=== PATIENT | female | born 1945 | race Caucasian/White ===

== ENCOUNTER 2016-12-23 11:23 | Inpatient (IN) | payer OTHER ==
[2016-12-23 11:52] LABS: MANUAL DIFF NEEDED? NO
[2016-12-23 12:00] LABS: BASO% 0.2 % (0.0-0.8); EOS# 0.02 X1000 (0.0-0.7); EOS% 0.4 % (0.0-10.0); HEMATOCRIT 24.5 % (37.0-47.0); HEMOGLOBIN 7.8 g/dL (12.0-16.0); IMM GRAN# 0.01 X1000 (0.0-0.04); IMM GRAN% 0.2 % (0.0-0.5); LYMPH% 13.2 % (20.5-51.1); MCH 22.8 PG (27-31); MCHC 31.8 g/dL (33-37); MCV 71.6 FL (81-99); MONO# 0.73 X1000 (0.11-0.59); MONO% 13.8 % (1.7-9.3); MPV 10.9 FL (7.4-10.4); NEUT% 72.2 % (42.2-75.2); PLT 250 X1000 (130-400); RBC 3.42 XMIL (4.2-5.4)
--- NOTE | 2016-12-23 12:10 | PROVIDER DOCUMENTATION ---
HPI-Headache - General Chief Complaint: Flu Symptoms Stated Complaint: FEVER, MARTÍNEZ Time Seen by Provider: 12/23/16 11:32 Source: patient Allergies/Adverse Reactions: Patient Allergies Allergy/AdvReac Type Severity Reaction Status Date / Time No Known Allergies Allergy Verified 08/29/13 09:09 Home Medications: Home Medication List Medication Instructions Recorded Confirmed Last Taken Type Omeprazole/Sodium Bicarbonate 1 mg PO PRN PRN 08/29/13 12/23/16 08/28/13 20:00 History [Zegerid 40 mg] ROSUVAstatin [Crestor] 10 mg PO DAILY 08/29/13 12/23/16 08/28/13 20:00 History Metoprolol Succinate E.r. [Toprol 25 mg PO Q12H #0 tablet 08/30/13 12/23/16 Unknown Rx Xl] Levothyroxine [Synthroid] 100 microgm PO DAILY 09/03/13 12/23/16 Unknown History Apixaban [Eliquis] 5 mg PO BID 12/23/16 12/23/16 Unknown History Furosemide [Lasix] 10 mg PO DAILY 12/23/16 12/23/16 Unknown History - History of Present Illness-Headache Nature of Presenting Problem: Pt is 71 y/o F presents to the ED via EMS with MARTÍNEZ. Pt states MARTÍNEZ stated last night. Pt states N and V. Pt denies trauma or injury to head. Pt states the MARTÍNEZ in frontal. Pt's daughter states hx of MD. Pt's daughter states Pt has herniated disk in her neck. Pt's daughter states MARTÍNEZ intermittently for two months but last night was the worse. 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 Headache Location: reports: frontal Quality of Pain: reports: aching Severity: reports: moderate Onset/Duration: reports: last night Timing: reports: still present Headache Context: reports: nothing Headache History: reports: occasional headaches Any recent trauma/injury?: reports: none Headache severity at the maximum: moderate Headache Exacerbated by:: reports: nothing Modifying Factors: improves with: nothing Associated Symptoms: reports: headache, nausea, vomiting. denies: decreased ability to walk or stand, fainting, dizziness, confusion, chest pain, neck/back pain, fatigue, fever/chills, insomnia, loss of consciousness, muscle spasms, numbness in legs/feet, paresthesia, diaphoretic, ringing in ears, seizures, sleepy, slurred speech, tingling in legs/feet, trouble walking, vision changes, weakness Similar Symptoms Previously?: Yes Recently seen or treated by another doctor?: No Review of Systems - Adult - REVIEW OF SYSTEMS - ADULT Constitutional: denies: chills, fever Eyes: denies: blurred vision, double vision Ears, Nose, Mouth & Throat: denies: ear pain, nose pain, throat pain Cardiovascular: denies: chest pain, heart murmur, irregular heart rate Respiratory: denies: cough, shortness of breath, wheezing Gastrointestinal: reports: nausea, vomiting. denies: abdominal pain, diarrhea Genitourinary: denies: dysuria, hematuria Musculoskeletal: denies: bone pain, joint pain, neck pain Integumentary: denies: hives, itching Neurological: reports: headache/migraines (MARTÍNEZ). denies: dizziness/vertigo Psychiatric: reports: no symptoms reported Endocrine: reports: no symptoms reported Hematologic/Lymphatic: reports: no symptoms reported Allergic/Immunologic: reports: no symptoms reported All Other Systems: Reviewed and Negative Past History - Adult - PAST MEDICAL HISTORY-ADULT Review of Records: reports: Nursing Assessment Review, Medications Reviewed, Social history reviewed & non-contributory. Major Childhood Illnesses: reports: denies history Cardiovascular: reports: HTN, hyperlipidemia, MD (2 ) Respiratory: reports: denies history Gastrointestinal: reports: GERD Obstetrical/Gynecological: reports: denies history Genitourinary: reports: denies history Musculoskeletal: reports: denies history Neurological: reports: denies history Endocrine/Immune: reports: thyroid disorder Other Conditions: reports: denies history - PRIOR SURGERIES/PROCEDURES Surgical/Procedure History: reports: cholecystectomy, hysterectomy - IMMUNIZATION STATUS Childhood Immunizations: See Nurse Assessment Flu Vaccine: See Nurse Assessment - FAMILY HISTORY Family History: reviewed, not pertinent - SOCIAL HISTORY Smoking: quit less than 1 year, cigarettes Substance Use: denies Living Situation: family Physical Exam- Neurological - Physical Exam-Neuro Initial Vital Signs Reviewed: Yes General Appearance: appears well, alert, no apparent distress Eye Exam: bilateral eye: normal inspection, PERRL, EOMI HENMT: normocephalic/atraumatic, moist mucous membranes, normal ENT inspection, TMs normal, pharynx normal Head Injury: no evidence of injury Neck: non-tender, full range of motion, supple, normal inspection Respiratory: chest non-tender, lungs clear, normal breath sounds, no pleuratic chest pain, no respiratory distress, no accessory muscle use Cardiovascular: normal peripheral pulses, regular rate, rhythm, no edema, no gallop, no JVD, no murmur Abdominal Exam: normal bowel sounds, non tender, soft, no organomegaly, no pulsatile mass Lymphatic: no adenopathy Extremity: normal range of motion, non-tender, normal inspection, no pedal edema , no calf tenderness 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 Exam: normal hearing, normal speech, PERRL Motor/Sensory: no motor deficit, no sensory deficit, no pronator drift Neurologic: 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 II-XII nml as tested, grossly normal, no motor/sensory deficits Integumentary: normal color, normal turgor, warm/dry Psych/Mental Status: normal mood/affect, normal thought content, normal thought process, oriented x 3 Progress - PLAN OF CARE/RESULTS Progress/Plan/Lab Results: Laboratory Tests 12/23/16 12/23/16 12/23/16 11:30 11:47 11:47 WBC 5.30 RBC 3.42 L Hgb 7.8 L Hct 24.5 L MCV 71.6 L MCH 22.8 L MCHC 31.8 L RDW Std Deviation 17.1 H Plt Count 250 MPV 10.9 H Immature Gran % (Auto) 0.2 Neut % (Auto) 72.2 Lymph % (Auto) 13.2 L [place] % (Auto) 13.8 H Eos % (Auto) 0.4 Baso % (Auto) 0.2 Immature Gran # (Auto) 0.01 Neut # (Auto) 3.83 Lymph # (Auto) 0.70 L [place] # (Auto) 0.73 H Eos # (Auto) 0.02 Baso # (Auto) 0.01 Plasma/Serum Ethyl Alc Influenza A (Rapid) NEGATIVE Influenza B (Rapid) NEGATIVE Orders Category Date Time Status Cardiac Monitoring DIRECTED Care 12/23/16 11:25 Active Finger Stick Blood Sugar (ED) DIRECTED Care 12/23/16 11:25 Active Misc. NRSG Communication Order DIRECTED Care 12/23/16 11:25 Active Oxygen Therapy- ED Nursing DIRECTED Care 12/23/16 11:25 Active Saline Loc NOW Care 12/23/16 11:25 Active CHEST-1 VIEW [RAD] Stat Exams 12/23/16 11:25 Taken HEAD W/O CONTRAST [CT] Stat Exams 12/23/16 11:25 Ordered ALCOHOL BLOOD Stat Lab 12/23/16 11:47 Completed CBC WITH ELECTRONIC DIFF [HEME] Stat Lab 12/23/16 11:47 Completed CK PROFILE [SP CHEM] Stat Lab 12/23/16 11:47 Received COMPREHENSIVE METABOLIC PANEL [CHEM] Stat Lab 12/23/16 11:47 Received Flu [INFLUENZA SCREEN PL] Stat Lab 12/23/16 11:30 Completed LACTATE, PLASMA [CHEM] Stat Lab 12/23/16 11:[address]IME WITH INR [address] [COAG] Stat Lab 12/23/16 11:[address] [COAG] Stat Lab 12/23/16 11:47 Received TROPONIN T Stat Lab 12/23/16 11:[address] W/POSS RFLX CULT [URINALYSIS] Stat Lab 12/23/16 11:25 Uncollected URINE DRUG SCREEN PL Stat Lab 12/23/16 11:25 Uncollected Pulse Oximetry Stat Oth 12/23/16 11:25 Active EKG [EKG] Stat Ther 12/23/16 11:25 Ordered Vital Signs - 24 hr 12/23/16 11:37 Temperature 99.8 F H Pulse Rate 82 Respiratory 15 Rate Blood Pressure 130/53 O2 Sat by Pulse 95 Oximetry Laboratory Tests 12/23/16 12/23/16 12/23/16 11:30 11:47 11:47 WBC RBC Hgb Hct MCV MCH MCHC RDW Std Deviation Plt Count MPV Immature Gran % (Auto) Neut % (Auto) Lymph % (Auto) [place] % (Auto) Eos % (Auto) Baso % (Auto) Immature Gran # (Auto) Neut # (Auto) Lymph # (Auto) [place] # (Auto) Eos # (Auto) Baso # (Auto) PT INR APTT (Factor Assay) Sodium 136 Potassium 3.8 Chloride 103 Carbon Dioxide 21 L Anion Gap 12 BUN 11 Creatinine 1.0 H BUN/Creatinine Ratio 11 Glucose 113 H Calculated Osmolality 272 Calcium 8.7 L Total Bilirubin 0.20 AST 20 ALT 10 Alkaline Phosphatase 73 Creatine Kinase 32 Troponin T Total Protein 6.9 Albumin 3.6 Globulin 3.0 Albumin/Globulin Ratio 1.0 Amylase Lipase Plasma Lactate 1.9 Urine Source Urine Color Urine Clarity Urine pH Ur Specific Collbran Urine Protein Urine Ketones Urine Blood Urine Nitrite Urine Bilirubin Urine Urobilinogen Urine Microscopic RBC Urine WBC Urine Microscopic WBC Ur Epithelial Cells Urine Glucose Stool Occult Blood Plasma/Serum Ethyl Alc Influenza A (Rapid) NEGATIVE Influenza B (Rapid) NEGATIVE 12/23/16 12/23/16 12/23/16 11:47 11:47 11:47 WBC 5.30 RBC 3.42 L Hgb 7.8 L Hct 24.5 L MCV 71.6 L MCH 22.8 L MCHC 31.8 L RDW Std Deviation 17.1 H Plt Count 250 MPV 10.9 H Immature Gran % (Auto) 0.2 Neut % (Auto) 72.2 Lymph % (Auto) 13.2 L [place] % (Auto) 13.8 H Eos % (Auto) 0.4 Baso % (Auto) 0.2 Immature Gran # (Auto) 0.01 Neut # (Auto) 3.83 Lymph # (Auto) 0.70 L [place] # (Auto) 0.73 H Eos # (Auto) 0.02 Baso # (Auto) 0.01 PT INR APTT (Factor Assay) Sodium Potassium Chloride Carbon Dioxide Anion Gap BUN Creatinine BUN/Creatinine Ratio Glucose Calculated Osmolality Calcium Total Bilirubin AST ALT Alkaline Phosphatase Creatine Kinase Troponin T < 0.010 Total Protein Albumin Globulin Albumin/Globulin Ratio Amylase Lipase Plasma Lactate Urine Source Urine Color Urine Clarity Urine pH Ur Specific Collbran Urine Protein Urine Ketones Urine Blood Urine Nitrite Urine Bilirubin Urine Urobilinogen Urine Microscopic RBC Urine WBC Urine Microscopic WBC Ur Epithelial Cells Urine Glucose Stool Occult Blood Plasma/Serum Ethyl Alc Influenza A (Rapid) Influenza B (Rapid) 12/23/16 12/23/16 12/23/16 11:47 11:47 12:23 WBC RBC Hgb Hct MCV MCH MCHC RDW Std Deviation Plt Count MPV Immature Gran % (Auto) Neut % (Auto) Lymph % (Auto) [place] % (Auto) Eos % (Auto) Baso % (Auto) Immature Gran # (Auto) Neut # (Auto) Lymph # (Auto) [place] # (Auto) Eos # (Auto) Baso # (Auto) PT 18.0 H INR 1.46 H APTT (Factor Assay) 36.6 Sodium Potassium Chloride Carbon Dioxide Anion Gap BUN Creatinine BUN/Creatinine Ratio Glucose Calculated Osmolality Calcium Total Bilirubin AST ALT Alkaline Phosphatase Creatine Kinase Troponin T Total Protein Albumin Globulin Albumin/Globulin Ratio Amylase 67 Lipase 44 Plasma Lactate Urine Source VOIDED Urine Color YELLOW Urine Clarity CLEAR Urine pH 7.0 Ur Specific Collbran 1.005 Urine Protein TRACE A Urine Ketones TRACE Urine Blood 4+ Urine Nitrite NEGATIVE Urine Bilirubin NEGATIVE Urine Urobilinogen NORMAL Urine Microscopic RBC 20-40 A Urine WBC TRACE A Urine Microscopic WBC <10 Ur Epithelial Cells <10 Urine Glucose NEGATIVE Stool Occult Blood Plasma/Serum Ethyl Alc Influenza A (Rapid) Influenza B (Rapid) 12/23/16 13:00 WBC RBC Hgb Hct MCV MCH MCHC RDW Std Deviation Plt Count MPV Immature Gran % (Auto) Neut % (Auto) Lymph % (Auto) [place] % (Auto) Eos % (Auto) Baso % (Auto) Immature Gran # (Auto) Neut # (Auto) Lymph # (Auto) [place] # (Auto) Eos # (Auto) Baso # (Auto) PT INR APTT (Factor Assay) Sodium Potassium Chloride Carbon Dioxide Anion Gap BUN Creatinine BUN/Creatinine Ratio Glucose Calculated Osmolality Calcium Total Bilirubin AST ALT Alkaline Phosphatase Creatine Kinase Troponin T Total Protein Albumin Globulin Albumin/Globulin Ratio Amylase Lipase Plasma Lactate Urine Source Urine Color Urine Clarity Urine pH Ur Specific Collbran Urine Protein Urine Ketones Urine Blood Urine Nitrite Urine Bilirubin Urine Urobilinogen Urine Microscopic RBC Urine WBC Urine Microscopic WBC Ur Epithelial Cells Urine Glucose Stool Occult Blood NEGATIVE Plasma/Serum Ethyl Alc Influenza A (Rapid) Influenza B (Rapid) - XRAY 1 XRAY: Bilateral XRAY Study: Chest Impression: Normal XRAY Interpretation: NAD - CT/MRI 1 CT Study: Head Impression: Normal CT Results: NAD - CONSULTS/PCP/HOSPITALIST Notification #1 *Consult/PCP/Hospitalist*: Dr. Dewey Time Discussed: 14:31 (Dr. Dewey accepted admit ) Reason/Comments: Dr. Schmitz consulted with Dr. Dewey about admit of Pt Consult Disposition: Admit Departure - Departure Time of Disposition Order: 14:11 DIAGNOSIS: Anemia Qualifiers: Anemia type: unspecified type Qualified Code(s): D64.9 - Anemia, unspecified Nausea & vomiting Qualifiers: Vomiting type: unspecified Vomiting Intractability: unspecified Qualified Code( s): R11.2 - Nausea with vomiting, unspecified Chest pain Qualifiers: Chest pain type: unspecified Qualified Code(s): R07.9 - Chest pain, unspecified Disposition: ADMITTED INPATIENT 09 Certified Medical Emergency: Emergent Condition: Stable Additional Instructions: ED Follow Up Instructions: You have been treated by a care provider in the Emergency Department. These instructions are being provided to you so you can have an understanding of how to care for yourself upon discharge. Upon discharge from the Emergency Department, you are responsible for making arrangements for follow-up care by a physician of your choice. Take all prescribed medications as directed. Return to the Emergency Department immediately for any new or worsening symptoms. You may call the Physician Referral phone number at [phone] to obtain a list of Physicians who are taking new patients. Referrals: Ruben Johnson MD [Primary Care Provider] - Attestation - Scribe Verification/Attestation Scribe:: Adore Miguel Acting as Scribe for:: Yasmeen Schmitz Scribe documention review:: This chart was documented by a scribe and accurately reflects the service the provider performed and the decisions made by the provider.
[2016-12-23 12:15] LABS: INR 1.46 (0.86-1.15)
[2016-12-23] MEDS ORDERED: NS 1,000 ML IV ONE (12:15)
[2016-12-23] MEDS ORDERED: ATIVAN IV ONE (12:15)
[2016-12-23 12:16] LABS: PTT PL 36.6 Seconds (22.6-43.9)
[2016-12-23 12:25] LABS: URINE CULTURE PL NEEDED? NO; URINE SOURCE VOIDED
--- NOTE | 2016-12-23 12:27 | Diag Imaging Result Document ---
PROCEDURE NAME: CHEST-1 VIEW - 12/23/2016 PA CHEST: FINDINGS: The inspiration is slightly less optimal than on 12/14/2016. Otherwise, there has been no significant change. IMPRESSION: No acute disease.
[2016-12-23 12:28] LABS: AMYLASE 67 U/L (20-200); LIPASE 44 U/L (13-60)
--- NOTE | 2016-12-23 12:28 | Diag Imaging Result Document ---
PROCEDURE NAME: HEAD W/O CONTRAST - 12/23/2016 CT OF THE HEAD WITHOUT CONTRAST: FINDINGS: There are calcifications in the vertebral and internal carotid arteries bilaterally. There is no evidence of intracranial mass effect, bleed, or abnormal extra-axial fluid collection. There is hyperostosis frontalis interna. There is minimal microvascular change around the right frontal horn. IMPRESSION: No evidence of acute intracranial disease.
[2016-12-23] MEDS ORDERED: TYLENOL PO ONE ×2 (12:32→18:14)
[2016-12-23 12:35] LABS: AGAP 12; BUN 11 mg/dL (8-22); CHLORIDE 103 mmol/L (98-107); POTASSIUM 3.8 mmol/L (3.5-5.1); SODIUM 136 mmol/L (136-145); TCO2 21 mmol/L (25-35)
[2016-12-23 12:36] LABS: ALBUMIN 3.6 g/dL (3.5-5.0); ALKALINE PHOSPHATASE 73 U/L (32-104); CALCIUM 8.7 mg/dL (8.8-10.2); CK PROFILE 32 U/L (24-173); COSMO 272; GOT 20 U/L (10-30); GPT 10 U/L (10-36); TOTAL PROTEIN 6.9 g/dL (6.3-8.3)
[2016-12-23 12:43] LABS: BILIRUBIN URINE NEGATIVE (NEGATIVE); BLOOD URINE 4+ (NEGATIVE); CLARITY CLEAR (CLEAR); COLOR YELLOW; GLUCOSE URINE NEGATIVE (NEGATIVE); LEUKOCYTES URINE TRACE (NEGATIVE); NITRITE URINE NEGATIVE (NEGATIVE); PROTEIN URINE TRACE mg/dL (NEGATIVE); SP GRAVITY URINE 1.005; UROBILINOGEN URINE NORMAL
[2016-12-23 13:00] LABS: URINE WBC <10 /HPF (<10)
[2016-12-23 13:01] LABS: URINE EPITHELIAL CELLS <10 /HPF (<10); URINE RBC 20-40 /HPF (<10)
[2016-12-23 13:12] LABS: OCCULT BLOOD 1 NEGATIVE (NEGATIVE)
[2016-12-23] MEDS: D5W 500 ML IV ONE ×2 (14:11→18:43)
[2016-12-23] MEDS ORDERED: ZOFRAN IV PRN (14:55)
[2016-12-23 15:16] LABS: IRON SATURATION 4 %; TIBC 329 ug/dL; TOTAL IRON 14 ug/dL (49-151); UNBOUND IRON 315 ug/dL (112-346)
[2016-12-23] MEDS ORDERED: TYLENOL PO PRN (15:29)
[2016-12-23] MEDS ORDERED: PROTONIX IV SCH (16:00)
--- NOTE | 2016-12-23 16:02 | HISTORY AND PHYSICAL ---
PRIMARY CARE PHYSICIAN: Dr. Johnson. CHIEF COMPLAINT: Nausea, vomiting, and a headache. HISTORY OF PRESENTING ILLNESS: This is a 71-year-old female who presents to [facility] ER via EMS after having a frontal headache that began last night but has been present on and off for the past 2 months. She states she has also had some nausea and vomiting. She denies any trauma or injury to her head. Her daughter states that she gave her 2 Advil prior to arriving. Workup in the ER showed a CT of the head with no evidence of an acute intracranial disease. Chest x-ray showed no acute disease. Laboratory data showed an hemoglobin and hematocrit of 7.8 and 24.5. Her urinalysis showed 4+ blood, otherwise, negative. Stool for occult blood was negative. Influenza A and B were both negative. She had a low -grade temperature when she arrived at 99.8. So, she is being admitted at this time for further evaluation and treatment. PAST MEDICAL HISTORY: NM, herniated disk in her neck, hypertension, hyperlipidemia, and GERD. PAST SURGICAL HISTORY: Cholecystectomy and a hysterectomy. FAMILY HISTORY: Noncontributory. SOCIAL HISTORY: She currently lives alone. She denies any tobacco, alcohol, or illicit drug use. ALLERGIES: She has no known drug allergies. HOME MEDICATIONS: 1. Eliquis 5 mg p.o. b.i.d., which will be held. 2. Zegerid 40 mg p.r.n. will be held. 3. Lasix 10 mg p.o. daily. 4. Synthroid 100 mcg p.o. daily. 5. Toprol-XL 25 mg p.o. q. 12. 6. Crestor 10 mg p.o. daily. LABORATORY DATA: White blood cell count of 5.30, hemoglobin 7.8, hematocrit 24.5, platelets of 250,000. PT and INR of 18 and 1.46. Sodium of 136, potassium 3.8, chloride 103 , CO2 of 21. BUN of 11, creatinine of 1, glucose 113. Creatine kinase of 32. Troponin less than 0.010. Amylase of 67, lipase 44. Plasma lactate of 1.9. Urinalysis showed 4+ blood but, otherwise, negative. Stool for occult blood was negative. Serum alcohol level showed none detected. Influenza A and B were both negative. Chest x-ray showed no acute disease. Head CT showed no evidence of an acute intracranial disease. REVIEW OF SYSTEMS: She was positive for a headache, nausea and vomiting, fatigue, decreased energy, decreased appetite. The patient denied any chest pain, coughing, shortness of breath, constipation, diarrhea, burning or hurting with urination. PHYSICAL EXAMINATION: VITAL SIGNS: On arrival, her temperature was 99.8 degrees, pulse 82, respirations 15, blood pressure 130/53, saturating 95% on room air. GENERAL: This is a 71-year-old female who is lying in the bed and answers questions appropriately. SKIN: Noted to be paler. HEENT: Normocephalic and atraumatic. Pupils are equal, round, reactive to light. Extraocular movements are intact. Oropharynx and nares are clear. NECK: Supple. LUNGS: Clear to auscultation bilaterally with equal lung expansion and chest wall movement. HEART: Regular rate and rhythm. No murmurs, rubs, or gallops. ABDOMEN: Soft, nontender, nondistended. Bowel sounds are present x4 quadrants. EXTREMITIES: No clubbing, cyanosis, or edema. NEUROLOGIC: The cranial nerves 2-12 are grossly intact. ASSESSMENT: 1. Anemia, NOS. 2. Hematuria. 3. Hypertension, history of. 4. Gastroesophageal reflux disease. PLAN: She is being admitted to the medical unit at [facility], placed on telemetry. Healthy heart diet. We will check iron studies today and then we will transfuse 2 units of packed red blood cells and recheck a CBC and a BMP in the a.m. We will do a renal stone search without contrast just to make sure since she has been on Eliquis in the past and we have got some hematuria that there is no other issues. We will start her on a multi Plus 1 p.o. daily in the a.m. Place on Zofran 4 mg IV q.4 hours. D5 at 150 mL an hour x1 bag and she is receiving that in the ER and, again, we are stopping her Eliquis at this time. 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 pt examined, possibly had VGE episode, agree that pt will need to be off eliquis for now until occult bleeding from bowel or system has been ruled out, will need GI workup with Dr Do at discharge APENOT Dictated by KENNETH Rapp for Jean Dewey MD MTD
--- NOTE | 2016-12-23 16:05 | Diag Imaging Result Document ---
PROCEDURE NAME: RENAL STONE SEARCH - 12/23/2016 RENAL STONE SEARCH: FINDINGS: Evaluation of the solid visceral organs is limited by lack of IV contrast. There is a punctate calcification, left kidney. There is no hydronephrosis. There is a 12 mm hypodensity lower pole left kidney peripherally. This may represent a cyst. Ultrasound could be obtained for further evaluation. There is atherosclerotic calcification. There is diverticulosis, predominately within the sigmoid colon. There is no evidence for diverticulitis. The appendix is not visualized; however, no inflammatory changes are identified. There is an 8 x 6 mm mesenteric lymph node, right lower quadrant, which is nonspecific, image 46, sequence 2. No bladder calcifications are identified. IMPRESSION: 1. Punctate calcification, left kidney. 2. A 12 mm hypodensity, left kidney, likely represents a renal cyst. Further evaluation with ultrasound is recommended in this patient with hematuria. 3. An 8 x 6 mm lymph node right lower quadrant. [facility]
[2016-12-23 17:51] LABS: FERRITIN 9 ng/mL (13-150)
[2016-12-23] MEDS: TOPROL XL PO SCH (17:52)
[2016-12-23] MEDS: SODIUM CHLORIDE 0.9% INJ PRN (17:52)
[2016-12-23] MEDS ORDERED: FIORICET PO PRN (18:11)
[2016-12-23] MEDS ORDERED: FIORICET PO ONE (18:12)
[2016-12-23] MEDS ORDERED: NS 500 ML IV ONE ×2 (18:13→18:14)
[2016-12-23] MEDS ORDERED: BENADRYL PO ONE (18:14)
[2016-12-23] MEDS ORDERED: RESTORIL PO PRN (18:15)
[2016-12-23] MEDS ORDERED: LASIX IV SCH (18:15)
[2016-12-23] MEDS ORDERED: CRESTOR PO SCH (21:00)
[2016-12-24] MEDS ORDERED: PROTONIX IV SCH (06:00)
[2016-12-24 06:11] LABS: BASO% 0.6 % (0.0-0.8); EOS# 0.03 X1000 (0.0-0.7); EOS% 0.8 % (0.0-10.0); HEMATOCRIT 31.9 % (37.0-47.0); HEMOGLOBIN 10.5 g/dL (12.0-16.0); IMM GRAN# 0.01 X1000 (0.0-0.04); IMM GRAN% 0.3 % (0.0-0.5); LYMPH# 1.02 X1000 (1.2-3.4); LYMPH% 28.5 % (20.5-51.1); MANUAL DIFF NEEDED? YES; MCH 24.5 PG (27-31); MCHC 32.9 g/dL (33-37); MCV 74.4 FL (81-99); MONO# 0.95 X1000 (0.11-0.59); MONO% 26.5 % (1.7-9.3); MPV 11.5 FL (7.4-10.4); NEUT% 43.3 % (42.2-75.2); PLT 220 X1000 (130-400); RBC 4.29 XMIL (4.2-5.4)
[2016-12-24] MEDS: SODIUM CHLORIDE 0.9% INJ PRN (06:20)
[2016-12-24] MEDS: TOPROL XL PO SCH (06:20)
[2016-12-24 06:37] LABS: CALCIUM 8.8 mg/dL (8.8-10.2); POTASSIUM 3.9 mmol/L (3.5-5.1)
[2016-12-24] MEDS ORDERED: SYNTHROID PO SCH (07:15)
[2016-12-24 07:17] LABS: BANDS 0 % (0-1); LYMPHS 30 % (21-51); MONO 20 % (1-9)
[2016-12-24] MEDS ORDERED: HEMOCYTE PLUS CAPSULE PO SCH (09:00)
[2016-12-24] MEDS ORDERED: LASIX PO SCH (09:00)
[2016-12-24] MEDS ORDERED: FERRLECIT 125 MG in NS 100 ML IV ONE (09:04)
--- NOTE | 2016-12-24 09:36 | Diag Imaging Result Document ---
PROCEDURE NAME: US RENAL 2 (RETROPER) COMPLETE - 12/24/2016 RENAL ULTRASOUND: COMPARISON: CT abdomen and pelvis 12/23/2016. FINDINGS: There is a small 1 cm left renal cyst. The kidneys are, otherwise, normal in echotexture. No hydronephrosis or mass. The urinary bladder is normal. The right kidney measures 10.4 x 4.7 x 6.4 cm. Cortex measures 12 mm. The left kidney measures 10.6 x 4.7 x 4.5 cm. Cortex measures 9 mm. IMPRESSION: Small, benign left renal cyst. Otherwise, negative.
[2016-12-24] MEDS ORDERED: NS 500 ML ONE (10:13)
[2016-12-24 10:59] VITALS: BP 129/62
--- NOTE | 2016-12-24 18:55 | DISCHARGE SUMMARY ---
ADMISSION DATE: 12/23/2016 DISCHARGE DATE: 12/24/2016 PRIMARY CARE PHYSICIAN: Ruben Johnson MD ADMISSION DIAGNOSES: 1. Anemia, not otherwise specified. 2. Hematuria. 3. Hypertension, history of. 4. Gastroesophageal reflux disease. DISCHARGE DIAGNOSES: 1. Iron deficiency anemia. 2. Hematuria. 3. Hypertension, history of. 4. Gastroesophageal reflux disease. SUMMARY OF FINDINGS: This is a 71-year-old female, who presented to [facility] ER via EMS after having some frontal headaches, nausea, and vomiting. Emergency Room workup showed a head CT without any evidence of acute intracranial disease. Chest x-ray showed no acute disease. Laboratory data showed a hemoglobin and hematocrit of 7.8 and 24.5. Her urinalysis showed 4+ blood, but otherwise negative. Stool for occult blood was negative. Influenza A and B were both negative. Her temp on arrival was 99.8, and this was after her daughter had given her two Aleve, so she was admitted. We checked iron studies that showed an iron of 14, with a TIBC of 329. Ferritin of 9. Vitamin B12 was 468. We transfused with 2 units of packed red blood cells. This a.m. her hemoglobin and hematocrit is 10.5 and 31.9. We gave her a 1 time infusion of Ferrlecit 125 mg IV x1. We did a renal CT due to the 4+ hematuria, that showed a punctate calcification on the left kidney, a 12 mm hypodensity in the left kidney that represented most likely a renal cyst. Recommended further evaluation with ultrasound for the hematuria. We did a renal ultrasound this a.m. that showed a small benign left renal cyst; otherwise, negative. We started the patient on a Multigen Plus one p.o. daily and it is felt now that she can safely be discharged home. She has been instructed to stop her Eliquis that she was taking after she has had 2 heart ablations. We have discussed this with her local oil speculator. The surgeon that did the heart ablation is out of the country at this time. She will follow up with them as scheduled. She is to follow up with her primary care physician in 1-2 weeks and she also has an appointment with her Chemical Waste Management Technician, Dr. Low Mcdaniel on 01/04/2017 at 10:30 a.m. DISCHARGE MEDICATIONS: She will have a prescription for the Multigen Plus one p.o. daily, #30 with 2 refills and Protonix 40 mg one p.o. daily. She has been instructed not to take her Eliquis at this time. She is to continue her home medications of Lasix 10 mg p.o. daily, Synthroid 100 mcg p.o. daily. Metoprolol 25 mg p.o. q.12 hours, Crestor 10 mg p.o. daily, and she also has a Zegerid 40 mg p.o. p.r.n. It is also felt that she would benefit from a GI workup outpatient with a colonoscopy and esophagogastroduodenoscopy. All discharge instructions have been written reviewed with the patient and she verbalizes understanding. TIME SPENT: A 35 minute discharge for Nicola Andres. Dictated by KENNETH Rapp for Jean Dewey MD
== END 2016-12-24 12:05 | disposition home or self-care (01) | DRG 812 ==
LOC: P.ED 11:23 → P.MEDSURG 11:24
PROVIDERS: ATTEND Internal Medicine
PROC: 30233N1 Transfusion of Nonautologous Red Blood Cells into Peripheral Vein, Percutaneous Approach (ICD-10-PCS; principal; 2016-12-23)
DX: D64.9 Anemia, unspecified (principal); R31.9 Hematuria, unspecified; N28.1 Cyst of kidney, acquired; I10 Essential (primary) hypertension; K21.9 Gastro-esophageal reflux disease without esophagitis; E78.5 Hyperlipidemia, unspecified; A08.4 Viral intestinal infection, unspecified; I25.2 Old myocardial infarction; Z79.899 Other long term (current) drug therapy; Z79.01 Long term (current) use of anticoagulants
CPT/HCPCS: 70450; 71010; 74176; 76770; 80048; 80053; 81001; 82150; 82270; 82550; 82607; 82728; 82746; 83540; 83550; 83605; 83690; 84484; 85025; 85610; 85730; 86850; 86900; 86901; 86920; 87804; 93005; 96360; 96361; C9113; G0480; J1940; J2916; J7030; J7040; J7060; P9016; 80320; S0164

== ENCOUNTER 2019-06-30 09:29 | Inpatient (IN) ==
--- NOTE | 2019-06-30 10:22 | EKG Report ---
Test Performed on : 06/30/2019 09:36:25 AM Test Reason : sob Blood Pressure : / mmHG Vent. Rate : 052 BPM Atrial Rate : 052 BPM P-R Int : 170 ms QRS Dur : 090 ms QT Int : 508 ms P-R-T Axes : 078 010 029 degrees QTc Int : 472 ms Sinus bradycardia. Nonspecific ST abnormality Abnormal ECG When compared with ECG of 04-SEP-2013 08:58, Criteria for Septal infarct are no longer present T wave inversion no longer evident in Inferior leads Unconfirmed Result
[2019-06-30 10:31] LABS: BASO# 0.05 X1000 (0.0-0.2); BASO% 0.7 % (0.0-0.8); EOS# 0.26 X1000 (0.0-0.7); EOS% 3.6 % (0.0-10.0); HEMATOCRIT 36.4 % (37.0-47.0); HEMOGLOBIN 12.7 g/dL (12.0-16.0); LYMPH# 1.83 X1000 (1.2-3.4); LYMPH% 25.2 % (20.5-51.1); MCH 28.8 PG (27-31); MCHC 34.9 g/dL (33-37); MCV 82.5 FL (81-99); MONO# 0.74 X1000 (0.11-0.59); MONO% 10.2 % (1.7-9.3); MPV 10.7 FL (7.4-10.4); NEUT# 4.39 X1000 (1.4-6.5); NEUT% 60.3 % (42.2-75.2); PLT 342 X1000 (130-400); RBC 4.41 XMIL (4.2-5.4); RDW 12.7 % (11.5-14.5); WBC 7.27 X1000 (4.8-10.8)
[2019-06-30 10:37] LABS: INR 2.71; PROTIME 29.5 Seconds (11.0-16.0)
[2019-06-30 10:38] LABS: PTT 58.7 Seconds (22.3-41.8)
--- NOTE | 2019-06-30 10:45 | Diag Imaging Result Doc PS360 ---
CHEST-1 VIEW - 06/30/2019 INDICATION: sob COMPARISON: 12/26/2018 FINDINGS: There is subtle obscuration of some of the right hemidiaphragm which may indicate atelectasis or an infiltrate. Heart size and pulmonary vascularity is normal. No pneumothorax or pleural effusion. IMPRESSION: Questionable atelectasis or infiltrate in the right lower lobe. Electronically signed by Cosmo Carrillo 06/30/2019 10:43 AM
[2019-06-30 10:46] LABS: ALB/GLOB RATIO 1.7; ALBUMIN 4.7 g/dL (3.5-5.0); POTASSIUM 3.9 mmol/L (3.5-5.1); TOTAL BILIRUBIN 0.5 mg/dL (0.20-1.00); TOTAL PROTEIN 7.5 g/dL (6.3-8.3)
[2019-06-30 10:58] LABS: URINE SOURCE CLEAN CATCH
[2019-06-30 11:00] LABS: BILIRUBIN URINE NEGATIVE (NEGATIVE); BLOOD URINE SMALL (NEGATIVE); COLOR STRAW; GLUCOSE URINE NEGATIVE (NEGATIVE); KETONE URINE NEGATIVE (NEGATIVE); LEUKOCYTES URINE NEGATIVE (NEGATIVE); NITRITE URINE NEGATIVE (NEGATIVE); PROTEIN URINE NEGATIVE (NEGATIVE); SP GRAVITY URINE 1.008; TURBIDITY URINE CLEAR (CLEAR); UR EPITHELIAL CELLS <10 /HPF (<10); URINE BACTERIA NEGATIVE /HPF; URINE RBC <10 /HPF (<10); URINE WBC <10 /HPF (<10); UROBILINOGEN URINE NORMAL (NORMAL)
--- NOTE | 2019-06-30 11:56 | Diag Imaging Result Doc PS360 ---
CT HEAD W/O CONTRAST - 06/30/2019 INDICATION: numbness to arms and face COMPARISON: 12/23/2016 FINDINGS: The ventricles and sulci are normal in size and contour. There is stable mild to moderate periventricular white matter chronic microvascular disease. No intracranial mass or hemorrhage. The skull is intact. The sinuses, mastoids, and middle ears are clear. IMPRESSION: No acute disease or change from prior. This exam was performed using automated exposure control, adjustment of mA or kV according to patient size, and/or use of iterative reconstruction technique Electronically signed by Cosmo Carrillo 06/30/2019 11:54 AM
--- NOTE | 2019-06-30 12:08 | Diag Imaging Result Doc PS360 ---
CT ABD/PELVIS W/IV CONT ONLY - 06/30/2019 INDICATION: abdo pain, dark stools, hx GI bleed COMPARISON: 12/23/2016 FINDINGS: The lung bases are clear and the heart size is normal. Stable cholecystectomy clips. There is a small nonobstructing left renal stone measuring about 6 mm. Otherwise all abdominal organs are normal. No bowel obstruction or inflammation. There is severe diverticulosis of the sigmoid colon. Uterus is absent. Urinary bladder and rectum are normal. There are moderate degenerative changes of the spine. No acute or suspicious bony lesion. IMPRESSION: Nonobstructing left renal stone. Severe diverticulosis coli. This exam was performed using automated exposure control, adjustment of mA or kV according to patient size, and/or use of iterative reconstruction technique Electronically signed by Cosmo Carrillo 06/30/2019 12:06 PM
[2019-06-30] MEDS ORDERED: DILAUDID IV ONE (12:17)
[2019-06-30] MEDS ORDERED: ZOFRAN IV ONE (12:17)
--- NOTE | 2019-06-30 13:39 | PROVIDER DOCUMENTATION ---
This chart was entered by Adore Miguel Scribe, acting as scribe for Te Singleton MD. HPI-General Adult - General Chief Complaint: General Adult Stated Complaint: CP Time Seen by Provider: 06/30/19 10:03 Source: patient Allergies/Adverse Reactions: Patient Allergies Allergy/AdvReac Type Severity Reaction Status Date / Time No Known Allergies Allergy Verified 06/30/19 10:10 Home Medications: Home Medication List Medication Instructions Recorded Confirmed Last Taken Type ROSUVAstatin [Crestor] 10 mg PO DAILY 08/29/13 06/30/19 06/29/19 History Levothyroxine [Synthroid] 100 microgm PO DAILY 09/03/13 06/30/19 06/30/19 History Cetirizine HCl [All Day Allergy] 1 cap PO DAILY 06/30/19 06/30/19 06/30/19 History Furosemide 1 tab PO DAILY 06/30/19 06/30/19 06/30/19 History Rivaroxaban [Xarelto] 1 tab PO DAILY 06/30/19 06/30/19 06/30/19 History Sotalol HCl [Sotalol] 0.5 tab PO BID 06/30/19 06/30/19 06/30/19 History - History of Present Illness -Gen Adult Nature of Presenting Problems: Patient is a 73 year old female who presents with mid back pain that radiates to bilateral arms. States chest pain, shortness of breath, and numbness and tingling to mouth and bilateral arms with back pain. Report symptoms started yesterday and were relieved with Advil then returned this morning. Family states patient had a Watchman placed in [place] by Dr. Lawrence on the 08 of June. Patient states having a black stool this morning. Reports being on Xarelto. Location of Pain/Injury: reports: back (mid) Pain Radiation: reports: arm(s) (bilateral) Quality of Pain: reports: aching Severity: reports: moderate Onset/Duration: reports: 24 hours ago Timing: reports: still present, intermittent, getting worse Context/Activities at Onset: reports: light activity Associated Symptoms: reports: chest pain, shortness of breath, sensory/motor loss (numbness and tingling to mouth and bilateral arms.), other (black stool.) Similar Symptoms Previously?: Yes Recently seen or treated by another doctor?: No Review of Systems - Adult - REVIEW OF SYSTEMS - ADULT Constitutional: reports: no symptoms reported. denies: chills, fever, fatique Eyes: reports: no symptoms reported Ears, Nose, Mouth & Throat: reports: no symptoms reported Cardiovascular: reports: see HPI, chest pain. denies: irregular heart rate, palpitations Respiratory: reports: see HPI, shortness of breath. denies: cough, wheezing Gastrointestinal: reports: see HPI, other (black stool). denies: nausea, vomiting Genitourinary: reports: no symptoms reported Musculoskeletal: reports: see HPI, back pain (mid). denies: muscle aches, neck pain Integumentary: reports: no symptoms reported Neurological: reports: see HPI, numbness (mouth and bilateral arms), paresthesia (mouth and bilateral arms). denies: dizziness/vertigo, syncope Psychiatric: reports: no symptoms reported Endocrine: reports: no symptoms reported Hematologic/Lymphatic: reports: no symptoms reported Allergic/Immunologic: reports: no symptoms reported All Other Systems: Reviewed and Negative Past History - Adult - PAST MEDICAL HISTORY-ADULT Review of Records: reports: Old Records Reviewed, Social history reviewed & non-contributory. Major Childhood Illnesses: reports: denies history Cardiovascular: reports: A-Fib, HTN, hyperlipidemia, CO (2 ) Respiratory: reports: denies history Gastrointestinal: reports: GERD Obstetrical/Gynecological: reports: denies history Genitourinary: reports: denies history Musculoskeletal: reports: denies history Neurological: reports: denies history Endocrine/Immune: reports: thyroid disorder Other Conditions: reports: denies history - PRIOR SURGERIES/PROCEDURES Surgical/Procedure History: reports: cholecystectomy, hysterectomy - IMMUNIZATION STATUS Childhood Immunizations: See Nurse Assessment Flu Vaccine: See Nurse Assessment - FAMILY HISTORY Family History: reviewed, not pertinent - SOCIAL HISTORY Smoking: cigarettes (former) Substance Use: alcohol Alcohol Use Frequency: occasionally Physical Exam-General - PHYSICAL EXAM-ADULT Initial Vital Signs Reviewed: Yes - CONSTITUTIONAL General Appearance: alert, no apparent distress. negative: lethargic - HEAD, EARS, NOSE, MOUTH & THROAT HENMT: normocephalic/atraumatic, moist mucous membranes. negative: angioedema - RESPIRATORY Respiratory: chest non-tender, lungs clear, normal breath sounds. negative: crackles, stridor - CARDIOVASCULAR Cardiovascular: normal peripheral pulses, regular rate, rhythm. negative: tachycardia - GASTROINTESTINAL (ABDOMEN) Abdominal Exam: normal bowel sounds, soft, tenderness (RUQ and LLQ). negative: distended, guarding, rigid, mass - GENITOURINARY Rectal Exam: blood streaked stool Hemoccult Exam: heme positive stool - MUSCULOSKELETAL Extremity: normal inspection. negative: deformity, erythema - SKIN Integumentary: normal color, normal turgor, warm/dry. negative: cyanosis, ecchymosis, jaundice - NEUROLOGIC Neurologic: grossly normal. negative: aphasia, facial droop - PSYCHIATRIC Psych/Mental Status: normal mood/affect, oriented x 3. negative: anxious Progress - PLAN OF CARE/RESULTS Progress/Plan/Lab Results: Vital Signs - 8 hr 06/30/19 09:31 Temperature 98.1 F Pulse Rate 55 L Respiratory Rate 20 Blood Pressure 194/72 O2 Sat by Pulse Oximetry 100 Laboratory Results - last 24 hr 06/30/19 06/30/19 10:05 10:05 WBC 7.27 RBC 4.41 Hgb 12.7 Hct 36.4 L MCV 82.5 MCH 28.8 MCHC 34.9 RDW Std Deviation 12.7 Plt Count 342 MPV 10.7 H Immature Gran % (Auto) 0.0 Neut % (Auto) 60.3 Lymph % (Auto) 25.2 [place] % (Auto) 10.2 H Eos % (Auto) 3.6 Baso % (Auto) 0.7 Immature Gran # (Auto) 0.00 Neut # (Auto) 4.39 Lymph # (Auto) 1.83 [place] # (Auto) 0.74 H Eos # (Auto) 0.26 Baso # (Auto) 0.05 PT 29.5 H INR 2.71 Orders Category Date Time Status CT ABD/PELVIS W/IV CONT ONLY [CT] Stat Exams 06/30/19 10:[address] HEAD W/O CONTRAST [CT] Stat Exams 06/30/19 10:07 Ordered cxr [CHEST-1 VIEW] [RAD] Stat Exams 06/30/19 10:12 Taken CBC WITH ELECTRONIC DIFF [HEME] Stat Lab 06/30/19 10:05 Completed COMPREHENSIVE METABOLIC PANEL [CHEM] Stat Lab 06/30/19 10:05 Received PRO B-NATRIURETIC PEPTIDE Stat Lab 06/30/19 10:22 Received PROTIME WITH INR [COAG] Stat Lab 06/30/19 10:05 Results PTT [COAG] Stat Lab 06/30/19 10:05 Results TROPONIN T Stat Lab 06/30/19 10:05 Received URINALYSIS W/POSS RFLX CULT [URINALYSIS] Stat Lab 06/30/19 10:07 Uncollected EKG [EKG] Stat Ther 06/30/19 10:07 Draft At recheck pt noted that she was feeling much better and denies any further numbness or pain. Hemoccult positive. Pt discussed with Hospitalist who agreed to admit. Result Diagrams: 06/30/19 10:05 06/30/19 10:05 - REASSESSMENT Reassessment #1 Time Reassessed: 13:12 Status: improving (patient states pain has improved.) - EKG 1 Time of EKG reading by physician:: 09:36 EKG Read and Signed by:: Te Singleton EKG Interpretation (*Must complete 3 of following elements*): Abnormal Rate: 52 Rhythm: sinus bradycardia [place]: normal [place] Interval: normal Comments: nonspecific ST abnormality. - XRAY 1 XRAY Study: Chest Impression: See EMR Report ( CHEST-1 VIEW - 06/30/2019 INDICATION: sob COMPARISON: 12/26/2018 FINDINGS: There is subtle obscuration of some of the right hemidiaphragm which may indicate atelectasis or an infiltrate. Heart size and pulmonary vascularity is normal. No pneumothorax or pleural effusion. IMPRESSION: Questionable atelectasis or infiltrate in the right lower lobe. Electronically signed by Cosmo Carrillo 06/30/2019 10:43 AM 06/30/19 1043 Interpreting Physician: Cosmo Carrillo MD Dictated Date/Time: 06/30/19 1042 cc: Te Singleton MD; Ruben Johnson MD) - CT/MRI 1 CT Study: Head Impression: See EMR Report (Signed CT HEAD W/O CONTRAST - 06/30/2019 INDICATION: numbness to arms and face COMPARISON: 12/23/2016 FINDINGS: The ventricles and sulci are normal in size and contour. There is stable mild to moderate periventricular white matter chronic microvascular disease. No intracranial mass or hemorrhage. The skull is intact. The sinuses, mastoids, and middle ears are clear. IMPRESSION: No acute disease or change from prior. This exam was performed using automated exposure control, adjustment of mA or kV according to patient size, and/or use of iterative reconstruction technique Electronically signed by Cosmo Carrillo 06/30/2019 11:54 AM 06/30/19 1154 Interpreting Physician: Cosmo Carrillo MD Dictated Date/Time: 06/30/19 1152 cc: Te Singleton MD; Ruben Johnson MD) 2 CT Study: Abdomen, Pelvis Impression: See EMR Report ( CT ABD/PELVIS W/IV CONT ONLY - 06/30/2019 INDICATION: abdo pain, dark stools, hx GI bleed COMPARISON: 12/23/2016 FINDINGS: The lung bases are clear and the heart size is normal. Stable ch olecystectomy clips. There is a small nonobstructing left renal stone measuring about 6 mm. Otherwise all abdominal organs are normal. No bowel obstruction or inflammation. There is severe diverticulosis of the sigmoid colon. Uterus is absent. Urinary bladder and rectum are normal. There are moderate degenerative changes of the spine. No acute or suspicious bony lesion. IMPRESSION: Nonobstructing left renal stone. Severe diverticulosis coli. This exam was performed using automated exposure control, adjustment of mA or kV according to patient size, and/or use of iterative reconstruction technique Electronically signed by Cosmo Carrillo 06/30/2019 12:06 PM 06/30/19 1206 Interpreting P hysician: Cosmo Carrillo MD Dictated Date/Time: 06/30/19 1204 cc: Te Singleton MD; Ruben Johnson MD) - CONSULTS/PCP/HOSPITALIST Notification #1 *Consult/PCP/Hospitalist*: KENNETH Weems for Hospitalist Time Discussed: 13:20 Reason/Comments: Dr. Singleton consulted with Faustina about patient. Consult Disposition: Will see in ED, Admit Departure - Departure Date of Disposition Decision: 06/30/19 Time of Disposition Decision: 13:20 DIAGNOSIS: GI bleeding, CHF (congestive heart failure), Pneumonia Disposition: ADMITTED INPATIENT 09 Certified Medical Emergency: Emergent Condition: Fair Referrals and Follow-Ups: Ruben Johnson MD [Primary Care Provider] - - Critical Care Note This patient required my direct & personal management of CC.: No Attestation - Physician/ MOLLY Attestation Patient care was provided by Advanced Practice Provider:: No The physician spent face to face time with patient:: Yes Advanced Practice Provider documentation review:: Supervising physician onsite and consulted in the evaluation and care of this patient. The physician did have a face to face encounter with the patient. This chart was documented by the indicated scribe, (Adore Miguel, Herb) and accurately reflects the services I performed and decisions made by me, Te Singleton MD, as attested by the provider's signature.
[2019-06-30] MEDS ORDERED: ROCEPHIN 1 GM in NS 50 ML IV ONE (14:52)
[2019-06-30] MEDS ORDERED: ROBITUSSIN-AC PO PRN (15:05)
[2019-06-30] MEDS: ZITHROMAX PO SCH (16:41)
[2019-06-30] MEDS ORDERED: VITAMIN K SUBQ ONE (17:03)
[2019-06-30 18:16] LABS: HEMATOCRIT 35.6 % (37.0-47.0); HEMOGLOBIN 12.8 g/dL (12.0-16.0)
[2019-06-30] MEDS: DILAUDID IV PRN (18:38)
--- NOTE | 2019-06-30 21:50 | HISTORY AND PHYSICAL ---
CHIEF COMPLAINT: Bloody stool. HISTORY OF PRESENT ILLNESS: This is a 73-year-old female with a history of atrial fibrillation on chronic anticoagulation, hypothyroid, hypertension, with prior GI bleed. She presents to the emergency room complaining of mid back pain that radiates up through the center of her back into bilateral arms as well as chest pressure, shortness of breath with numbness and tingling to her mouth. She reports symptoms starting yesterday afternoon with aching across the mid part of her back. Symptoms resolved after taking 2 Aleve. This morning she developed abdominal cramping, went to the bathroom, had a large bowel movement that was black with some blood mixed in and shortly after this, she stated that the pain recurred, prompting her presentation to the emergency room. On arrival to the emergency room, she had blood pressures that were in the 190s to 200 over 60s and 70s. She was given Dilaudid for pain and blood pressures have dropped to the 170s over 60s. She does state that her pain was relieved with the Dilaudid. She has a history of a prior GI bleed on Eliquis. Prompting a cardiac ablation, then a Watchman procedure [address] Melendez in [place]. She is in the process of weaning Xarelto. She has been instructed to stop this after 45 days, then take Plavix for 45 days, then stop all anticoagulation. She states that she has had an upper respiratory infection with a cough. Two weeks ago, she was given an antibiotic. Symptoms persisted. She was changed to doxycycline on June 25. She states during this time she had a very persistent cough and generalized body aches and chills with also a productive cough with yellow secretions. PAST MEDICAL HISTORY: 1. Atrial fibrillation status post Watchman procedure 3 weeks prior. 2. Prior cardiac ablation. 3. Hypertension. 4. Hyperlipidemia. 5. Hypothyroid. PAST SURGICAL HISTORY: Cholecystectomy, cataract surgery, hysterectomy, cardiac ablation and Watchman procedure. SOCIAL HISTORY: She is a former smoker. She does use alcohol on occasion. She denies any illicit drug use. ALLERGIES: No known drug allergies. HOME MEDICATIONS: A list will be obtained by the nursing staff and once verified review and restart as appropriate. REVIEW OF SYSTEMS: Discussed with patient. Pertinent positives stated in HPI. She denies any syncope, dizziness, any palpitations, any nausea, vomiting, diarrhea, or constipation, any black or bloody vomitus, any hematuria, dysuria, frequency, urgency. PHYSICAL EXAMINATION: GENERAL: This is a 73-year-old female who is sitting up on the stretcher in no distress. VITAL SIGNS: Blood pressure is 173/61 with a heart rate of 54, temperature is 98.1 oral with O2 saturation 100% on room air. EYES: Pupils equal, round, react to light. EOMs are intact. Sclerae anicteric. HEENT: Head is normocephalic, atraumatic. Mucous membranes are moist. NECK: Supple with trachea midline. CARDIOVASCULAR: Regular rate and rhythm. S1 and S2 appreciated. She has no lower extremity edema. Calves are nontender with peripheral pulses palpable x4 extremities. PULMONARY: Breath sounds are clear with no increased work of breathing noted. GASTROINTESTINAL: Abdomen is soft, nontender, nondistended with bowel sounds in all 4 quadrants. GENITOURINARY: She has no CVA or suprapubic tenderness. SKIN: Warm and dry. NEUROLOGIC: She is alert and oriented x3. LABORATORY DATA: WBC 7.2 with hemoglobin 12, hematocrit 36.4, platelets of 342,000. INR is 2.71. Sodium 141, potassium 3.9, BUN 15, creatinine 1 with a glucose of 108. Troponin is negative. Urinalysis is essentially negative. She does have a small amount of blood, but she has less than 10 microscopic red blood cells. Blood cultures x2 are pending. Stool for blood is positive. IMAGIN. CT of the head reveals no acute disease. 2. CT of the abdomen and pelvis revealed nonobstructing left renal stone with severe diverticulosis coli. 3. Chest x-ray revealed questionable atelectasis or infiltrate in the right lower lobe. ASSESSMENT AND PLAN: 1. Gastrointestinal bleed. The patient will be admitted to the hospital, placed on telemetry. trend hemoglobin and hematocrit. hold her Xarelto. 2. Pneumonia left lower lobe. This is questionable on her CT scan. She has no white count nor fever, but she has been treated with 2 different antibiotics over the last 3 weeks. Therefore, we will go ahead and get blood cultures and treat her with Rocephin and azithromycin and further antibiotics will be culture driven. 3. History of atrial fibrillation, status post ablation and Watchman procedure, aware. 4. Hypertension. We will continue her home medications as appropriate. 5. Hyperlipidemia. 6. Hypothyroid. We will check a TSH and continue her medications once verified. Plan was discussed with Dr. Nicholas. Further treatments pending hospital course. Patient seen and examined by me face to face, all the laboratory, vitals signs and images were reviewed, patient presented to the emergency department with melena but also she has some nonspecific symptoms, she has been complaining of back pain that radiates to the middle of the shoulder blades, neck and she also has some numbness sensation/ paresthesias at the level of the upper extremities and around her mouth, that stated the day before admission, but got better with NSAIDs, and it has been happening on and off, she may need some images, I will avoid NSAIDS due to her GI bleed, I will consult GI, she has been on chronic anticoagulation , I agree with the BOOKKEEPING TEACHER's assessment and plan, Gus Fernandez MD. Dictated by KENNETH Huff for Gus Main MD cc: KENNETH Huff MD [facility]
[2019-06-30] MEDS: BETAPACE PO SCH (23:24)
[2019-07-01] MEDS: ULTRAM PO PRN ×2 (00:21→19:42)
[2019-07-01 00:55] LABS: HEMATOCRIT 34.5 % (37.0-47.0); HEMOGLOBIN 12.1 g/dL (12.0-16.0)
[2019-07-01] MEDS: ZOFRAN IV PRN ×2 (01:43→22:06)
[2019-07-01] MEDS: SYNTHROID PO SCH (06:09)
[2019-07-01 07:10] LABS: BASO# 0.05 X1000 (0.0-0.2); BASO% 0.7 % (0.0-0.8); EOS# 0.17 X1000 (0.0-0.7); EOS% 2.2 % (0.0-10.0); HEMATOCRIT 36.7 % (37.0-47.0); HEMOGLOBIN 12.8 g/dL (12.0-16.0); LYMPH# 1.79 X1000 (1.2-3.4); LYMPH% 23.6 % (20.5-51.1); MCHC 34.9 g/dL (33-37); MCV 83.2 FL (81-99); MONO# 0.67 X1000 (0.11-0.59); MONO% 8.9 % (1.7-9.3); MPV 10.6 FL (7.4-10.4); NEUT# 4.89 X1000 (1.4-6.5); NEUT% 64.6 % (42.2-75.2); PLT 301 X1000 (130-400); RBC 4.41 XMIL (4.2-5.4); RDW 12.9 % (11.5-14.5); WBC 7.57 X1000 (4.8-10.8)
[2019-07-01 07:32] LABS: AGAP 15; BUN 12 mg/dL (8-22); CALCIUM 9.2 mg/dL (8.8-10.2); CHLORIDE 102 mmol/L (98-107); COSMO 281; CREATININE 0.8 mg/dL (0.5-0.9); ESTIMATED GFR > 60; GLUCOSE 132 mg/dL (70-104); POTASSIUM 3.7 mmol/L (3.5-5.1); SODIUM 140 mmol/L (136-145); TCO2 23 mmol/L (25-35)
[2019-07-01] MEDS: BETAPACE PO SCH ×2 (08:10→20:07)
[2019-07-01] MEDS: LASIX PO SCH (08:11)
[2019-07-01] MEDS: CRESTOR PO SCH (08:11)
[2019-07-01] MEDS: ZITHROMAX PO SCH (08:11)
--- NOTE | 2019-07-01 14:16 | PROGRESS NOTE ---
DATE: 07/01/2019 SUBJECTIVE: At this moment, this patient is feeling good. She is complaining of generalized weakness. She has been having back pain radiated to her arms with some tingling sensation a couple times that gets better with pain medication. Because of that, I will get a cervical spine and thoracic spine CT scan to rule out any abnormality. OBJECTIVE: Vital Signs: Temperature 98.3 degrees, pulse 85, respiratory rate 15, blood pressure 129/68, oxygen saturation 100% on room air. HEENT: Head normocephalic, no trauma. Neck: Supple. No JVD. No masses. Central trachea. Chest: Clear to auscultation. No wheezing. No rales. Abdomen: Soft, nontender, nondistended. No hepatosplenomegaly. Extremities: No edema, no clubbing, no cyanosis. Neurological: The patient is alert. She is oriented x3. At this moment, she does not have focal neurological deficits. LABORATORY: WBC 7.5, hemoglobin 12.8, hematocrit 36.7, platelets 301,000. Sodium 140, potassium 3.7, chloride 102, bicarbonate 23, BUN 12, creatinine 0.8, glucose 132, calcium 9.2. Troponins negative x2. ASSESSMENT AND PLAN: 1. Gastrointestinal bleed, no more bowel movements during this hospitalization. Hemoglobin and hematocrit about the same compared with yesterday. She was admitted with 12.7 and today is 12.8, stable, hematocrit as well. She is feeling weak, but she believes this is because she has been n.p.o. I will put her on a full liquid diet. I will continue to monitor the hemoglobin and hematocrit. She has been complaining of back pain, also. 2. Left lower lobe pneumonia. Continue with antibiotics for now. 3. History of atrial fibrillation, status post ablation and Watchman procedure, aware. This is reason why she has been on anticoagulation, which I have stopped due to her gastrointestinal bleed. She will need to monitor this issue with her doctor as an outpatient. 4. Hypertension. Continue with her home medications. 5. Hyperlipidemia, aware. 6. Hypothyroidism. Continue with her levothyroxine. TSH is a little bit elevated. 7. Back pain with bilateral tingling sensation at the level of the hands. I will get a CT scan of the cervical spine and thoracic spine to rule out any acute abnormality since this patient is having this kind of problem for the past couple days. cc: Gus Main MD
[2019-07-01] MEDS: ROCEPHIN 1 GM in NS 50 ML IV SCH (14:38)
[2019-07-01 14:44] LABS: HEMATOCRIT 35.2 % (37.0-47.0); HEMOGLOBIN 12.4 g/dL (12.0-16.0)
--- NOTE | 2019-07-01 14:46 | Diag Imaging Result Doc PS360 ---
CT CERVICAL SPINE W/O CONTRAST - 07/01/2019 INDICATION: Back pain and bilateral extremity numbness COMPARISON: None FINDINGS: Alignment is anatomic. Vertebral body heights are preserved. No fracture or subluxation. There is heavy multilevel degenerative disc disease diffusely throughout the cervical and thoracic spine. There is severe multilevel facet degeneration with severe hypertrophy. No significant central canal stenosis. IMPRESSION: Advanced cervical and upper thoracic spondylosis. This exam was performed using automated exposure control, adjustment of mA or kV according to patient size, and/or use of iterative reconstruction technique. Electronically signed by Cosmo Carrillo 07/01/2019 2:44 PM
--- NOTE | 2019-07-01 14:51 | Diag Imaging Result Doc PS360 ---
CT THORACIC SPINE W/O CONTRAST - 07/01/2019 INDICATION: Back pain and bilateral extremity numbness COMPARISON: None FINDINGS: Alignment is anatomic. Vertebral body heights are preserved. There is advanced multilevel degenerative disc disease. Disc spaces are still somewhat preserved. No fracture or subluxation. No central canal stenosis. IMPRESSION: Advanced thoracic spondylosis. Electronically signed by Cosmo Carrillo 07/01/2019 2:48 PM
[2019-07-01] MEDS: DILAUDID IV PRN (22:06)
[2019-07-01 23:47] LABS: HEMATOCRIT 35.7 % (37.0-47.0); HEMOGLOBIN 12.4 g/dL (12.0-16.0)
[2019-07-02] MEDS: SYNTHROID PO SCH (06:05)
[2019-07-02 07:01] LABS: HEMATOCRIT 35.5 % (37.0-47.0); HEMOGLOBIN 12.5 g/dL (12.0-16.0)
[2019-07-02 07:40] LABS: AGAP 16; BUN 10 mg/dL (8-22); CALCIUM 9.6 mg/dL (8.8-10.2); CHLORIDE 105 mmol/L (98-107); COSMO 279; CREATININE 0.9 mg/dL (0.5-0.9); ESTIMATED GFR > 60; GLUCOSE 113 mg/dL (70-104); POTASSIUM 4.2 mmol/L (3.5-5.1); SODIUM 140 mmol/L (136-145); TCO2 19 mmol/L (25-35)
[2019-07-02] MEDS: ULTRAM PO PRN ×2 (07:52→13:50)
[2019-07-02] MEDS: ZITHROMAX PO SCH (08:02)
[2019-07-02] MEDS: LASIX PO SCH (08:02)
[2019-07-02] MEDS: BETAPACE PO SCH ×2 (08:02→20:59)
[2019-07-02] MEDS: CRESTOR PO SCH (08:02)
[2019-07-02 10:49] LABS: ALB/GLOB RATIO 1.3; ALBUMIN 4.1 g/dL (3.5-5.0); DIRECT BILIRUBIN 0.1 mg/dL (0.00-0.20); TOTAL BILIRUBIN 0.33 mg/dL (0.20-1.00); TOTAL PROTEIN 7.3 g/dL (6.3-8.3)
--- NOTE | 2019-07-02 10:51 | PROGRESS NOTE ---
DATE: 07/02/2019 SUBJECTIVE: This patient has been complaining of lower extremity discomfort, mostly her thighs. Her hemoglobin has been stable. She has been having some diarrhea as well so I will ask for LFTs to rule out hepatotoxicity due to Crestor, even though they were normal a few days ago. I am holding the Crestor due to the possibility of muscle toxicity but I am not quite sure if this is causing the problem. I discussed the case with gastroenterology department. They will evaluate this patient today to see if she needs to have an endoscopy done in the near future. OBJECTIVE: Vital Signs: Temperature 97.8 degrees, pulse 60, respiratory rate 14, blood pressure 149/76, oxygen saturation 100% on room air. HEENT: Head normocephalic. No trauma. PERRLA. Neck: Supple. No JVD. No masses. Central trachea. Chest: Clear to auscultation. Some crepitus at the right base. Abdomen: Soft, nontender, nondistended. No hepatosplenomegaly. Extremities: No edema, no clubbing, no cyanosis. Neurological Examination: The patient is alert. She is oriented x3. She does not have any focal neurological deficits at this moment but she is complaining of myalgia, mostly at the level of the thighs. Laboratory: Hemoglobin 12.5, hematocrit 35.5. Sodium 140, potassium 4.2, chloride 105, bicarbonate 19, BUN 10, creatinine 0.9, glucose 113, calcium 9.6. ASSESSMENT AND PLAN: 1. Gastrointestinal bleed. Now she has been having some diarrhea. I will check the Clostridium difficile toxin and antigen since she has been getting antibiotics before admission and during this admission. Hemoglobin has been stable. Gastroenterology department has been consulted. 2. Left lower lobe pneumonia. Continue with antibiotics for now. We are checking the Clostridium difficile toxin and antigen. 3. Back pain with bilateral tingling sensation at the level of the hands. She is not complaining today about tingling sensation. We did a cervical and thoracic spine CT that did not show any compression but showed spondylosis, which I do not believe is new. I will check the liver function tests to rule out any kind of hepatic problem and I will stop the Crestor for now for the possibility of muscle toxicity. Like I mentioned before, she is now complaining of bilateral lower extremity thigh pain. 4. History of atrial fibrillation, status post ablation and Watchman procedure. Aware. This is the reason why she has been on anticoagulation, which has been stopped due to her gastrointestinal bleed. She will need to monitor this issue with her doctor as an outpatient. Gastroenterology department has been consulted. Probably, she will need to have an endoscopy done. 5. Hypertension. Continue home medications. 6. Hyperlipidemia. I will stop for now her Crestor due to muscle pain at the lower extremities. 7. Hypothyroidism. Continue levothyroxine. cc: Gus Main MD
[2019-07-02] MEDS: ROCEPHIN 1 GM in NS 50 ML IV SCH (14:02)
--- NOTE | 2019-07-02 15:39 | GASTROENTEROLOGY CONSULTATION ---
DATE: 07/02/2019 REASON FOR CONSULTATION: Melena, mild anemia. PRIMARY FOIL SPINNER: Dr. Do. HISTORY OF PRESENT ILLNESS: Ms. Nicola Andres is a 73-year-old woman with past medical history of hypertension, hyperlipidemia, prior [place] x2, atrial fibrillation, status post ablation, and recent Watchman on 06/08/2019, on Xarelto, who presents with one episode of dark black tarry stools that started Wednesday morning. She reports associated subsequent chest pressure and tightness with numbness in her arms and lips. She also reports having some lightheadedness and dyspnea on exertion. Over the last week, she has been having subjective fever with a cough for which she was treated with doxycycline. She has finished a course for that. No nausea, vomiting, chills, sweats, abdominal pain, diarrhea, constipation, gross hematochezia or blood clots in her stool. She denies any shortness of breath at rest. She was previously on Dexilant about 2 years ago after having an admission for iron deficiency anemia where she was given IV iron. She subsequently was discharged and had a diagnostic EGD and colonoscopy with Dr. Do and was found to have a red spot in her stomach, presumably an ulcer, and was treated with Dexilant for 2 to 3 months. She is currently not on any antisuppression medications. No NSAIDs or aspirin. She has lost about 5 pounds in the last few days. REVIEW OF SYSTEMS: As per HPI, otherwise 12-point review of systems is negative. She does report some cramping in her legs, which is attributed to Crestor; however, she has been on that for many years. PAST MEDICAL HISTORY: As per HPI. She also has GERD, hypothyroidism, history of iron deficiency anemia, 3 kidneys, pulmonary nodules followed by Dr. Womack. Her primary evaluation specialist is Dr. Mcdaniel. PAST SURGICAL HISTORY: She has a history of eye surgery, Watchman, cholecystectomy, partial hysterectomy, prior cardiac ablation. SOCIAL HISTORY: She is a former smoker. Rare alcohol, no drug use. ALLERGIES: No known drug allergies. HOME MEDICATIONS: Xarelto, Crestor, levothyroxine, sotalol, Lasix, she took a couple Aleve the prior to her bleed. FAMILY HISTORY: Two brothers were diagnosed with lung cancer. No family history of GI malignancies. PHYSICAL EXAMINATION: Vital Signs: Temperature of 97.8 degrees, heart rate of 60, respiratory rate 14, blood pressure 149/76, O2 saturation 100% on room air. General: The patient is elderly, awake, alert, no acute distress. HEENT: Sclerae anicteric. Moist mucous membranes. Extraocular motor intact. Neck: Supple. No JVD or lymphadenopathy. Cardiac: Regular rate and rhythm. No murmurs. Lungs: Clear to auscultation bilaterally. No wheezing. Abdomen: Soft, nontender, nondistended. Normoactive bowel sounds. No rebound or guarding. Extremities: No clubbing, cyanosis, or edema. Neurologic: Nonfocal. LABS: Hemoglobin is 12.5 from 12.8 on admission, white count is 7.5, platelets of 301,000. INR is 2.71. Sodium 140, potassium of 4.2, chloride 105, bicarb of 19, BUN of 10, creatinine 0.9, glucose of 113, total bilirubin of 0.33, AST of 20, ALT of 9, alkaline phosphatase of 85, total protein of 7.3, albumin of 4.1. TSH of 7.93. ProBNP of 791. UA shows small amount of blood. Blood cultures x2 no growth to date. Fecal Hemoccult is positive. IMAGING: Head CT negative. CT of the abdomen and pelvis shows nonobstructing left renal stone, severe diverticulosis. Chest x-ray shows question atelectasis or infiltrate in the right lower lobe. Cervical spine is advanced cervical and upper thoracic spondylosis, and thoracic spine shows advanced thoracic spondylosis. ASSESSMENT AND PLAN: Ms. Nicola Andres is a 73-year-old woman with past medical of hypertension, hyperlipidemia, atrial fibrillation, status post ablation and recent Watchman, on Xarelto, prior peptic ulcer disease, GERD, and diverticulosis, who presents with some chest pressure and extremity numbness in the setting of episode of melena. Her hemoglobin is slightly low, but stable. Her MCV is low normal at 83. She previously was receiving iron infusions in the remote past by Dr. Mcdaniel and had EGD with Dr. Do that showed a red area in her stomach, possibly peptic ulcer disease versus gastritis. This was done in 2017. She does not have any ongoing melena. Her vital signs are stable. She is currently on ceftriaxone and azithromycin for possible pneumonia. She is currently not on a PPI, which we will start p.o. b.i.d. and make her n.p.o. after midnight for EGD with Dr. Do tomorrow. Her INR is elevated from unclear reasons. The patient does not have any liver disease and is not on Coumadin. We will give her vitamin K 10 mg IV for the next 3 days and recheck her INR in the morning. Thank you for this consult. We will follow with you. Please call with any questions or concerns. Dr. Do will be taking over care tomorrow.
[2019-07-02] MEDS: ZOFRAN IV PRN ×2 (18:24→22:40)
[2019-07-02] MEDS: DILAUDID IV PRN ×2 (18:24→22:37)
[2019-07-02] MEDS ORDERED: PROTONIX PO SCH (21:00)
[2019-07-03] MEDS: ZOFRAN IV PRN ×2 (02:32→10:02)
[2019-07-03] MEDS: DILAUDID IV PRN (02:32)
[2019-07-03 06:26] LABS: BASO# 0.08 X1000 (0.0-0.2); BASO% 0.8 % (0.0-0.8); EOS# 0.33 X1000 (0.0-0.7); EOS% 3.1 % (0.0-10.0); HEMATOCRIT 38.1 % (37.0-47.0); HEMOGLOBIN 13.4 g/dL (12.0-16.0); IMM GRAN# 0.03 X1000 (0.0-0.04); IMM GRAN% 0.3 % (0.0-0.5); LYMPH# 2.06 X1000 (1.2-3.4); LYMPH% 19.4 % (20.5-51.1); MCH 29.1 PG (27-31); MCHC 35.2 g/dL (33-37); MCV 82.6 FL (81-99); MONO% 8.5 % (1.7-9.3); MPV 10.8 FL (7.4-10.4); NEUT# 7.24 X1000 (1.4-6.5); NEUT% 67.9 % (42.2-75.2); PLT 339 X1000 (130-400); RBC 4.61 XMIL (4.2-5.4); RDW 12.8 % (11.5-14.5); WBC 10.64 X1000 (4.8-10.8)
[2019-07-03 06:43] LABS: INR 1.06; PROTIME 13.9 Seconds (11.0-16.0)
[2019-07-03 06:46] LABS: AGAP 15; ALB/GLOB RATIO 1.4; ALBUMIN 4.4 g/dL (3.5-5.0); ALKALINE PHOSPHATASE 97 U/L (32-104); BUN 8 mg/dL (8-22); CALCIUM 9.3 mg/dL (8.8-10.2); CHLORIDE 98 mmol/L (98-107); COSMO 274; CREATININE 0.8 mg/dL (0.5-0.9); ESTIMATED GFR > 60; GLUCOSE 124 mg/dL (70-104); GOT 25 U/L (10-30); GPT 12 U/L (10-36); POTASSIUM 3.7 mmol/L (3.5-5.1); SODIUM 137 mmol/L (136-145); TCO2 24 mmol/L (25-35); TOTAL BILIRUBIN 0.47 mg/dL (0.20-1.00); TOTAL PROTEIN 7.6 g/dL (6.3-8.3)
[2019-07-03] MEDS ORDERED: VITAMIN K 10 MG in NS 50 ML IV SCH (09:00)
[2019-07-03] MEDS: BETAPACE PO SCH ×2 (10:02→20:01)
[2019-07-03] MEDS ORDERED: DIPRIVAN 1% ONE (11:49)
[2019-07-03] MEDS ORDERED: XYLOCAINE-MPF 2% ONE (11:49)
--- NOTE | 2019-07-03 12:20 | ENDOSCOPY OPERATIVE NOTE ---
[facility] ENDOSCOPY OPERATIVE NOTE , PATIENT: Nicola Andres ADMISSION DATE: 07/03/2019 MR#: [id number] : 1945 [facility] [id number] EGD PROCEDURE REPORT PROCEDURE DATE: 07/03/2019 SURGEON: Aden Do MD STATUS: inpatient TRIMMING MACHINE OPERATOR: Paige Lane and Cali Manriquez PREOPERATIVE DIAGNOSIS: The patient is a 73 yr old female here for an EGD due to melena and acute po st hemorrhagic anemia. PROCEDURE PERFORMED: EGD, diagnostic MEDICATIONS: Per Anesthesia TOPICAL ANESTHETIC: none CONSENT: The patient understands the risks and benefits of the procedure and understands that these r isks include, but are not limited to: sedation, allergic reaction, infection, perforation and/or bleeding. Alternative means of evaluation and treatment include, among others: physical exam, x-rays, and/or surgical intervention. The patient elects to proceed with this endoscopic procedure. HISORY AND PHYSICAL: 07/03/2019 function. Hand hygiene and appropriate measures for infection prevention was taken. After the risks, benefits and alternatives of the procedure were thoroughly explained, Informed consent was verified, confirmed and timeout was successfully executed by the treatment team. The patient was anesthetized with topical anesthesia and the [id number] ([id number]) endoscope was introduced through the mouth and advanced to the second portion of the duoden um. Retroflexion was performed in the stomach and revealed no abnormalities. The gastroscope was then slowly withdraw n and removed. ESOPHAGUS: The mucosa of the esophagus appeared normal. STOMACH: Mild gastritis (inflammation) was found in the gastric antrum. There was no evidence of AV M, Ulcer, Tumor or Masses. The stomach otherwise appeared normal. DUODENUM: The duodenal mucosa showed no abnormalities. SPECIMENS REMOVED: No ADVERSE EVENTS: There were no complications. POSTOPERATIVE DIAGNOSIS: 1. The mucosa of the esophagus appeared normal 2. Gastritis (inflammation) was found in the gastric antrum 3. The stomach otherwise appeared normal 4. The duodenal mucosa showed no abnormalities RECOMMENDATIONS: 1. Resume pre-procedure medications 2. Follow up with GI Doctor in 2 months 3. Transfer to floor REPEAT EXAM: Aden Do MD eSigned: Aden Do MD 07/03/2019 12:22 PM Revised: 07/03/2019 12:22 PM cc: PATIENT NAME: Nicola Andres MR#: [id number]
[2019-07-03] MEDS: LASIX PO SCH (12:46)
[2019-07-03] MEDS: ZITHROMAX PO SCH (12:52)
[2019-07-03] MEDS: SYNTHROID PO SCH (12:52)
[2019-07-03] MEDS: ULTRAM PO PRN ×2 (12:52→23:30)
[2019-07-03] MEDS: ZANAFLEX PO PRN ×2 (15:14→22:13)
[2019-07-03] MEDS: ROCEPHIN 1 GM in NS 50 ML IV SCH (15:15)
--- NOTE | 2019-07-03 16:47 | PROGRESS NOTE ---
DATE: 07/03/2019 SUBJECTIVE: Patient has no major complaints. She just does not feel good. She is complaining of pain in her lower extremities like cramping. Also some circumoral paresthesias and paresthesias associated in her hands. OBJECTIVE: vital signs: Blood pressure is 177/61, heart rate 63, respiratory 15, temperature 97.4 degrees, 100% on room air. Cardiovascular: Regular rate and rhythm. Pulmonary: Bilateral breath sounds. Clear to auscultation. Gastrointestinal: Soft, nontender, nondistended. Bowel sounds were positive. LABORATORY DATA: White count is 10, hemoglobin and hematocrit 13 and 38, platelets 339,000. INR is 1.06. Basic was normal. PROBLEM LIST: 1. Gastrointestinal bleed, which I think has resolved. Her hemoglobin and hematocrit is stable, in fact it has actually increased. Her EGD is negative. Now, apparently this is a longstanding issue because they put a Watchman device in her and she has been on short-term anticoagulation which apparently is due for 45 days. She has made it 30. I will discuss with Cardiology, but I think technically she should probably be off anticoagulation at this point so as to not induce further bleeding. I do not get a sense Gastroenterology is planning to do any other further instrumentation, but we will follow. Clostridium difficile has not been obtained yet because her bowels have stopped running off. 2. Left lower lobe pneumonia. Continue antibiotics and follow closely. 3. Paresthesias. Unclear. I think we need to workup her peripheral neuropathy. It may just be from protracted nausea and vomiting, but we will check basic features. I agree with Dr. Nicholas stopping her statin as far as cramping and things like that is appropriate, but will check CRP and sed rate. 4. Coagulopathy, so we will continue to monitor that, will continue to hold Crestor, which I think I am going to hold now and continue to follow. cc: Jean Dewey MD [facility]
[2019-07-03] MEDS: NS 1,000 ML IV SCH (17:19)
[2019-07-04] MEDS: ZOFRAN IV PRN ×5 (01:37→22:56)
[2019-07-04] MEDS: DILAUDID IV PRN ×5 (01:37→22:47)
[2019-07-04] MEDS: APRESOLINE IV PRN ×2 (04:01→14:38)
[2019-07-04] MEDS: NS 1,000 ML IV SCH (05:20)
[2019-07-04 06:03] LABS: BASO# 0.05 X1000 (0.0-0.2); BASO% 0.6 % (0.0-0.8); EOS# 0.15 X1000 (0.0-0.7); EOS% 1.7 % (0.0-10.0); HEMATOCRIT 33.9 % (37.0-47.0); HEMOGLOBIN 12.1 g/dL (12.0-16.0); IMM GRAN# 0.02 X1000 (0.0-0.04); IMM GRAN% 0.2 % (0.0-0.5); LYMPH# 1.76 X1000 (1.2-3.4); LYMPH% 19.6 % (20.5-51.1); MCH 29.2 PG (27-31); MCHC 35.7 g/dL (33-37); MCV 81.9 FL (81-99); MONO# 0.66 X1000 (0.11-0.59); MONO% 7.4 % (1.7-9.3); MPV 10.9 FL (7.4-10.4); NEUT# 6.32 X1000 (1.4-6.5); NEUT% 70.5 % (42.2-75.2); PLT 273 X1000 (130-400); RBC 4.14 XMIL (4.2-5.4); RDW 12.5 % (11.5-14.5); WBC 8.96 X1000 (4.8-10.8)
[2019-07-04] MEDS: PRILOSEC PO SCH (06:11)
[2019-07-04] MEDS: SYNTHROID PO SCH (06:11)
[2019-07-04 06:16] LABS: HEMOGLOBIN A1C 5.4 % (4.8-6.0)
[2019-07-04 06:35] LABS: AGAP 13; ALB/GLOB RATIO 1.3; ALBUMIN 3.9 g/dL (3.5-5.0); ALKALINE PHOSPHATASE 84 U/L (32-104); BUN 8 mg/dL (8-22); CALCIUM 9.1 mg/dL (8.8-10.2); CHLORIDE 102 mmol/L (98-107); COSMO 273; CREATININE 0.8 mg/dL (0.5-0.9); ESTIMATED GFR > 60; GLUCOSE 122 mg/dL (70-104); GOT 15 U/L (10-30); GPT 10 U/L (10-36); POTASSIUM 3.5 mmol/L (3.5-5.1); SODIUM 137 mmol/L (136-145); TCO2 22 mmol/L (25-35); TOTAL BILIRUBIN 0.44 mg/dL (0.20-1.00); TOTAL PROTEIN 6.8 g/dL (6.3-8.3)
[2019-07-04 07:08] LABS: SED RATE 20 mm/hr (0-20)
[2019-07-04] MEDS: ZITHROMAX PO SCH (09:08)
[2019-07-04] MEDS: BETAPACE PO SCH ×2 (09:09→21:13)
[2019-07-04] MEDS: LASIX PO SCH (09:10)
--- NOTE | 2019-07-04 13:32 | GASTROENTEROLOGY PROGRESS NOTE ---
DATE: 07/04/2019 SUBJECTIVE: At the time of my evaluation, patient was sitting on the side of the bed. She had just gotten a shower. Her daughter was at the bedside. She currently denies any GI complaints. She is reporting some leg pain and back pain. EGD done on 07/03/2019 showed a normal esophagus, gastritis with no evidence of active bleeding. OBJECTIVE: Vital signs: Temperature 98.2 degrees, pulse 70, respirations 18, blood pressure 185/71. LABORATORY: Hematology: WBC 8.96, hemoglobin 12.1, hematocrit 33.9, MCV 81.9. Chemistry: Sodium 137, potassium 3.5, chloride 102, CO2 of 22, BUN 8, creatinine 0.8, glucose 122. ASSESSMENT AND PLAN: 1. Recent gastrointestinal bleed. Seems to have resolved. EGD showed only gastritis with no evidence of active bleeding. Continue PPI. 2. History of recent Watchman procedure on anticoagulation. Recommend following cardiology's recommendation on restarting her anticoagulation. 3. Paresthesias. I believe there is workup in progress. The patient is complaining of leg pain and back pain along with numbness. 4. GI will continue to follow. Continue PPI. There are no signs of active bleeding now. Further plans will be made according to her progress. I have discussed this case with Dr. Do. Dictated by KENNETH Jack for Aden Do MD cc: KENNETH Lopez MD
[2019-07-04] MEDS ORDERED: APRESOLINE IV PRN (15:01)
--- NOTE | 2019-07-04 15:36 | EKG Report ---
Test Performed on : 07/04/2019 3:15:17 PM Test Reason : chest pain Blood Pressure : / mmHG Vent. Rate : 083 BPM Atrial Rate : 083 BPM P-R Int : 162 ms QRS Dur : 086 ms QT Int : 426 ms P-R-T Axes : 079 027 030 degrees QTc Int : 500 ms Normal sinus rhythm. ST & T wave abnormality, consider anterolateral ischemia Abnormal ECG When compared with ECG of 30-Jun-2019 ST depression in II, V4-V6 is new Confirmed by Adolfo JAUREGUI, Amarjit Belle ([id number]) on 07/05/2019 8:18:18 AM
[2019-07-04] MEDS ORDERED: BLISTEX MEDICATED BERRY LIP BALM TOP PRN (16:11)
[2019-07-04] MEDS: NORVASC PO SCH ×2 (16:15→21:13)
[2019-07-04] MEDS: ROCEPHIN 1 GM in NS 50 ML IV SCH (16:15)
[2019-07-04] MEDS: NORCO-5 PO PRN ×2 (16:15→21:14)
--- NOTE | 2019-07-04 16:54 | PROGRESS NOTE ---
DATE: 07/04/2019 SUBJECTIVE: Patient reports having for the last 3 days bilateral leg pain, apparently comes from the back. Also, she complains of difficulty sleeping; she does not take any medications for insomnia though. OBJECTIVE: Vitals: Temperature 98.2 degrees, heart rate 70, respiratory rate 18, blood pressure 185/71, O2 saturation 100% on room air. General examination: This is a chronically ill- appearing, 73-year-old female, lying in bed in no acute distress. Cardiovascular exam: S1, S2 heard. No murmurs or gallops or rubs. Regular rate and rhythm. Respiratory exam: Clear bilaterally to auscultation. No work of breathing or using accessory muscles. Abdomen: Soft, nontender to palpation. Bowel sounds present. No organomegaly. Extremities: No clubbing, cyanosis, or edema. Peripheral pulses present in both legs. Neurological exam: Patient alert, oriented x3. Moves 4 extremities. LABORATORY DATA: White cell count 8.96, hemoglobin 12.1, hematocrit 33.9, platelets 273. BMP is okay. ASSESSMENT AND PLAN: 1. Gastrointestinal bleeding. I think this condition is resolved. Hemoglobin is stable. She has been on anticoagulation, in this case on Xarelto. 2. Left lower lobe pneumonia. We will continue with antibiotics, in this case the patient is on ceftriaxone and azithromycin. We will continue with same management. Today is day #4 for both medications. 3. Bilateral lower extremity pain. Will check lumbar spine to see if there is any osteoarthritis to justify this patient having this pain. We will change Ultram for [place] 5 and we will go from there. 4. Status post Watchman procedure. Apparently she was supposed to be on 45 days of anticoagulation with Xarelto, and so far she has made 30. Will continue to monitor. 5. Chest pain/uncontrolled hypertension. I think the reason why this patient is developing chest pain is because of the pressure going really high in the range of 180s to 190s. We are going to check in any case troponins and echocardiogram, and we will consult Cardiology. 6. Disposition: We will continue to monitor this patient closely. cc: Manpreet Mcelroy MD
[2019-07-04] MEDS ORDERED: PRINIVIL PO SCH (21:00)
[2019-07-04] MEDS: AMBIEN PO SCH (21:14)
[2019-07-04] MEDS ORDERED: LOVENOX SUBQ ONE (21:27)
--- NOTE | 2019-07-04 22:49 | CARDIOLOGY CONSULTATION ---
DATE: 07/04/2019 IMPRESSION: 1. Episode of chest heaviness this afternoon lasting approximately 10 minutes and resolving spontaneously. Patient noted prior episode accompanying her presenting symptoms on Wednesday as well. 2. Primary complaint is that of lower back pain with pain in both thighs, extending down to her knees, aggravated by lying flat and standing. Consider the possibility of spinal stenosis. 3. Recent dark stools with history of previous gastrointestinal blood loss, on anticoagulation. Anticoagulation with Xarelto interrupted. Hematocrit stable. Transfusion not required. Gastroenterology evaluation reportedly negative. 4. Atrial flutter. The patient is status post previous atrial flutter ablation in [place] several years ago. 5. Paroxysmal atrial fibrillation that has continued to recur despite 2 atrial fibrillation ablation procedures (pulmonary vein isolation procedures). Patient continues on sotalol and currently in sinus rhythm. 6. Recurrent gastrointestinal blood loss while on anticoagulation. Patient not felt to be a suitable candidate for long-term anticoagulation. She is status post Watchman procedure, 06/08/2019, by Dr. Lawrence. Dr. Lawrence recommended 45 days of anticoagulation with Xarelto postprocedure and followup transesophageal echocardiography near the conclusion of this period of anticoagulation. 7. Longstanding hypertension/hypertensive cardiovascular disease with left ventricular hypertrophy reported on previous echocardiography. 8. Reported history of previous "heart attack." Evaluations since the 1970s have included 3 coronary angiograms reporting no significant obstructive coronary lesions. Chest CT scan does confirm coronary calcifications. Nonobstructive coronary atherosclerosis has been apparently diagnosed in the past. 9. Reported history of mitral valve prolapse. This was not noted on recent transesophageal echocardiography report. 10. Hyperlipidemia. 11. Hypothyroidism. RECOMMENDATIONS: 1. Follow up cardiac enzymes, and if negative, pursue Lexiscan myocardial perfusion study as tolerated. 2. CT scan of lumbar spine to evaluate for degenerative disease of the lumbar spine and spinal stenosis. 3. Given negative GI evaluation, resume anticoagulation with Lovenox as soon as possible tonight. If this is tolerated and if no contraindications from a GI standpoint, will transition patient back to Xarelto to complete her prescribed course of anticoagulation. 4. Discontinue Zithromax. HISTORY: This is a 73-year-old, white female, with past history of paroxysmal atrial fibrillation, previous atrial flutter treated with atrial flutter ablation, nonobstructive coronary atherosclerosis, hypertensive cardiovascular disease, and previous recurrent GI blood loss, on anticoagulation, who is status post Watchman procedure, 06/08/2019, was admitted four days ago after she presented with a dark stool reported, and with back pain and upper leg pain. She did have some transient chest pressure on initial presentation. She relates that the night before admission, she started having pain in her lower back that extended up her back. She took some ibuprofen, what sounds like perhaps 400 mg that night. The next morning, she noted a dark stool. She continued with low back pain, as well as some bilateral hand numbness and numbness around her mouth. There was some chest pressure transiently. She came to the hospital and was admitted for further evaluation with suspicion of possible recurrent GI blood loss while on Xarelto. Xarelto was discontinued. She has had GI evaluation which is reported negative. She has continued to have rather bothersome lower back discomfort which extends into her upper legs, and is aggravated by lying flat or standing up. She actually has to have assistance to get to the bathroom because the pain intensifies to such a degree when she stands up. This afternoon, she had an episode of chest heaviness that lasted perhaps 10 minutes and resolved spontaneously. For this reason, Cardiology was consulted. She relates that she has had 2 previous "heart attacks" in the past. She had coronary angiography in the 1970s, and again in the late 1980s, and again perhaps 10 years ago. She has not been noted to have any significant coronary obstructive lesions that might merit intervention. She was told on one occasion that she was felt to have mitral valve prolapse. Her last cardiac catheterization study was approximately 10 years ago. She did not require coronary intervention at that time. She has had chest CT scans which have indicated coronary calcifications. She has not had a stress study in several years. PAST MEDICAL HISTORY: 1. Atrial flutter. Patient is status post atrial flutter ablation approximately [address] Stone in [place] at [facility]. 2. Paroxysmal atrial fibrillation. Patient is status post pulmonary vein isolation procedure on 2 occasions, the last in May 2018, by Dr. Lawrence. 3. Recurrent GI blood loss on anticoagulation. Patient is status post Watchman procedure on 06/08/2019, by Dr. Lawrence. 4. Nonobstructive coronary atherosclerosis. 5. Hypertension. 6. Hyperlipidemia. 7. Hypothyroidism. PAST SURGICAL HISTORY: Includes cholecystectomy, cataract surgery, hysterectomy, cardiac ablation procedures, and Watchman procedure. ALLERGIES: She has no known drug allergies. MEDICATIONS PRIOR TO ADMISSION: As listed. SOCIAL HISTORY: She is a former smoker. She drinks infrequent alcoholic beverage. FAMILY HISTORY: Negative for premature coronary atherosclerosis. REVIEW OF SYSTEMS: Pulmonary: Noteworthy for recent problems with productive cough, but no fever. Sputum does not sound purulent, was actually slightly yellow and then clear. She has received a course of antibiotics to empirically cover "pneumonia." Cough has pretty much resolved. Gastrointestinal: Noteworthy for dark stool last Wednesday. This has not persisted. Constitutional: Negative for fever or chills. Remainder of review of systems negative/noncontributory with 14 total systems reviewed. PHYSICAL EXAMINATION: A slightly anxious-appearing, elderly female, in no distress on room air.Vital signs: Blood pressure 158/97, heart rate 82 and regular with ECG monitor showing sinus rhythm. Oxygen saturation 98% on room air. HEENT: Extraocular movements appear intact. Mucous membranes moist. Neck: Supple without jugular venous distention. There are no carotid bruits. Chest: Clear to auscultation bilaterally. Cardiac: A regular rate and rhythm without appreciable murmur or gallop. Abdomen: Soft. Bowel sounds are normal. Extremities: Without edema. Neurologic: Alert and fully oriented. Speech is fluent. She moves all 4 extremities equally well. PERTINENT DATA: A 12-lead EKG obtained this afternoon, demonstrates sinus rhythm and nonspecific ST and T-wave abnormality. Chest x-ray obtained on admission is reviewed and demonstrates no acute pulmonary infiltrates. There is no evidence of pneumonia. Cardiac silhouette is normal size. LABORATORY DATA: Includes hematocrit 33.9, hemoglobin 12.1, white blood cell count 8.96, platelet count 273,000. Sodium 137, potassium 3.5, chloride 102, carbon dioxide 22, BUN 8, creatinine 0.8, glucose 122. Initial troponin on admission less than 0.01 with a followup troponin of less than 0.01 and less than 0.01. Troponin obtained this afternoon also less than 0.01. cc: Hill Campbell MD
[2019-07-05] MEDS: NORCO-5 PO PRN ×2 (00:41→06:08)
[2019-07-05] MEDS: DILAUDID IV PRN ×4 (02:36→21:54)
[2019-07-05 04:18] LABS: CHLORIDE 96 mmol/L (98-107); POTASSIUM 3.5 mmol/L (3.5-5.1); SODIUM 129 mmol/L (136-145)
[2019-07-05 04:19] LABS: AGAP 13; BUN 8 mg/dL (8-22); CALCIUM 8.7 mg/dL (8.8-10.2); COSMO 259; CREATININE 0.7 mg/dL (0.5-0.9); ESTIMATED GFR > 60; GLUCOSE 125 mg/dL (70-104); TCO2 20 mmol/L (25-35)
[2019-07-05 05:46] LABS: BASO# 0.04 X1000 (0.0-0.2); BASO% 0.3 % (0.0-0.8); EOS# 0.15 X1000 (0.0-0.7); EOS% 1.2 % (0.0-10.0); HEMATOCRIT 34.4 % (37.0-47.0); HEMOGLOBIN 12.1 g/dL (12.0-16.0); IMM GRAN# 0.03 X1000 (0.0-0.04); IMM GRAN% 0.2 % (0.0-0.5); LYMPH# 1.74 X1000 (1.2-3.4); LYMPH% 13.9 % (20.5-51.1); MCHC 35.2 g/dL (33-37); MCV 82.5 FL (81-99); MONO# 1.15 X1000 (0.11-0.59); MONO% 9.2 % (1.7-9.3); NEUT# 9.43 X1000 (1.4-6.5); NEUT% 75.2 % (42.2-75.2); PLT 306 X1000 (130-400); RBC 4.17 XMIL (4.2-5.4); WBC 12.54 X1000 (4.8-10.8)
[2019-07-05] MEDS: PRILOSEC PO SCH (06:08)
[2019-07-05] MEDS: SYNTHROID PO SCH (06:08)
[2019-07-05] MEDS ORDERED: LEXISCAN ONE (08:20)
[2019-07-05] MEDS ORDERED: AMINOPHYLLINE ONE (08:30)
--- NOTE | 2019-07-05 08:41 | Diag Imaging Result Doc PS360 ---
EXAM: CT LUMBAR SPINE W/O CONTRAST 07/05/2019 HISTORY: low back pain with bilateral upper LE pain TECHNIQUE: This exam was performed using automated exposure control, adjustment of mA or kV according to patient size, and/or use of iterative reconstruction technique. COMMENT: There are no previous studies available for comparison. There are atherosclerotic calcifications throughout the abdominal aorta without evidence of aneurysm. There is also atherosclerotic calcification in both iliac arteries. There is no evidence of acute bony abnormality. At the T11-12 level there is no evidence of spinal or foraminal stenosis. At T12-L1 there is posterior osteophyte formation without evidence of spinal or foraminal stenosis. At L1-2 there is some facet arthropathy and posterior osteophyte formation with vacuum phenomenon in the disc space. There is no evidence of significant spinal or foraminal stenosis. At the L2-3 level there is mild disc bulge without evidence of spinal or foraminal stenosis. There is also some mild facet arthropathy bilaterally. At the L3-4 level there is a Schmorl node in the lower endplate and facet arthropathy particularly on the left side. There is no evidence of spinal or foraminal stenosis. At the L4-5 level there is hypertrophic facet change bilaterally with ligamentum flavum hypertrophy and posterior disc bulge and osteophyte formation producing a mild degree of spinal stenosis. The left foramen is also slightly narrowed. At the L5-S1 level there is mild bilateral foraminal stenosis and bilateral hypertrophic facet disease. There is disc bulge with apparent central protrusion. This may impinge on the left S1 nerve root. There are also hypertrophic facet changes worse on the left than the right. IMPRESSION: Multilevel degenerative disc disease and facet arthropathy as described above. Mild spinal stenosis at L4-5. Apparent herniated nucleus pulposis at L5-S1. Electronically signed by Ld Edward 07/05/2019 8:39 AM
[2019-07-05] MEDS: ZOFRAN IV PRN ×2 (10:31→22:05)
[2019-07-05] MEDS: NORVASC PO SCH ×2 (10:32→21:25)
[2019-07-05] MEDS: BETAPACE PO SCH ×2 (10:32→21:25)
[2019-07-05] MEDS: LASIX PO SCH (10:32)
[2019-07-05] MEDS: LOVENOX SUBQ SCH ×2 (10:32→21:26)
[2019-07-05] MEDS: COZAAR PO SCH (10:32)
--- NOTE | 2019-07-05 12:48 | PROGRESS NOTE ---
DATE: 07/05/2019 SUBJECTIVE: The patient reports continuing to have back pain. She reports that the medication that she is getting, [place] 5, is not controlling her pain, but Dilaudid is relieving it some. She said that she was able to sleep last night. OBJECTIVE: Vital Signs: Temperature 98.4 degrees, heart rate 98, respiratory rate 15, blood pressure 160/86, O2 saturation 96% on room air. General: This is a chronically ill-appearing, 73- year-old, female, lying in bed in no acute distress. HEENT: Head is normocephalic, atraumatic. Neck: No JVD noted. No carotid bruits. No lymphadenopathy. No thyromegaly. Cardiovascular: S1, S2 heard. No murmurs, gallops, or rubs. Regular rate and rhythm. Respiratory: Clear bilaterally to auscultation. No work of breathing or using accessory muscles. Abdomen: Soft, nontender to palpation. Bowel sounds present. No organomegaly. Extremities: No clubbing, cyanosis, or edema. Peripheral pulses present in both legs. Neurological: The patient is alert and oriented x3. Moves all 4 extremities. IMAGING AND LABORATORY DATA: White cell count 12.54, hemoglobin 12.1, hematocrit 34.4, platelets 306,000. Sodium 129, rest of the BMP completely normal. We have checked troponins three times and they has been negative completely. CT of the lumbar spine showed multilevel degenerative disk disease and facet arthropathy, with mild spinal stenosis at L4-L5 level, and apparent herniated nucleus pulposus at L5-S1. ASSESSMENT AND PLAN: 1. Gastrointestinal bleeding. That is the reason why she was admitted to the hospital. She has been on Xarelto. So far, we did not find any reason for bleeding. Her hemoglobin has been stable, so I think at this point, we can resume anticoagulation. Actually, Dr. Campbell from Cardiology has started her on Lovenox, and he mentioned that we may need to switch her to Xarelto later on. 2. Left lower lobe pneumonia. Clinically, this patient is doing fine, not requiring any oxygen supplementation. Will continue with ceftriaxone. Azithromycin has been stopped by Cardiology. Will continue with the same management. Today is day #5 of ceftriaxone. 3. Spinal stenosis. That is located at the L4-L5 level. Will continue to monitor this patient. Will increase the doses of [place] from 5 to 10 mg by mouth every 6 hours, plus Dilaudid as needed. 4. Status post Watchman procedure. The patient was supposed to be 45 days on anticoagulation with Xarelto, but of course, we have stopped it once he had this bleeding. As per Cardiology recommendation, they started her on Lovenox, and the plan is to switch to Xarelto later on. 5. Uncontrolled hypertension. We have started her on amlodipine and lisinopril, and blood pressure is much better. Will continue to monitor. 6. Chest pain. We have checked troponins and they have been negative. I think this chest pain is secondary to uncontrolled hypertension. In any case, Cardiology has decided to do Lexiscan stress test. Will see what it shows. 7. History of mitral valve prolapse. Aware. 8. Disposition. Will continue to monitor this patient closely. cc: Manpreet Mcelroy MD
--- NOTE | 2019-07-05 13:50 | ECHO REPORT ---
ORDER DATE: 07/04/2019 INDICATION: The patient is status post Watchman procedure in 2019. INTERPRETING PHYSICIAN: Dr. Antonio Cuevas ECHOCARDIOGRAPHIC MEASUREMENTS: 1. Interventricular septum: 1.0 cm. 2. Posterior wall: 0.8 cm. 3. Diastolic diameter: 5.6 cm. 4. Left atrium: 5.8 cm. 5. Aortic root: 2.9 cm. SUMMARY OF THE 2-DIMENSIONAL IMAGIN. Aortic valve leaflets are trileaflet, mildly sclerosed, opening normally. 2. Pulmonic valve was normal. There is trace pulmonary regurgitation. 3. There is mitral annular calcification. Mitral valve was normal. There is biatrial enlargement. 4. There is mild mitral regurgitation. 5. Peak velocity across the aortic valve less than 2 m/sec. By Doppler studies, there is no aortic stenosis or regurgitation. 6. Mild tricuspid regurgitation. Peak velocity across the tricuspid valve was 3.4 m/sec. 7. Pulmonary artery systolic pressure of 57 mmHg. 8. Normal left ventricular cavity size. Estimated ejection fraction of 65%. 9. There is no pericardial effusion or obvious intracardiac mass or thrombus seen. cc: MD Manpreet Gallardo MD
[2019-07-05] MEDS: ROCEPHIN 1 GM in NS 50 ML IV SCH (15:22)
[2019-07-05] MEDS: NORCO-10 PO PRN (15:25)
--- NOTE | 2019-07-05 15:59 | Diag Imaging Result Document ---
PROCEDURE NAME: MYOCARDIAL PERF SCAN, STR/REST - 07/05/2019 STUDY: Rest/stress Lexiscan myocardial perfusion study. INDICATION: Patient with atrial fibrillation, abnormal EKG. DESCRIPTION: The patient came into the nuclear laboratory, received resting injection of technetium 99 sestamibi 11.8 mCi. Multiple tomographic views of the cardiac structures were obtained at rest. Subsequently, the patient underwent infusion of Lexiscan 0.4 mg. At peak infusion, injected with technetium 99 sestamibi 30.5 mCi. Multiple tomographic views of the cardiac structures were obtained following the completion of the protocol. SUMMARY OF THE ELECTROCARDIOGRAPHIC PORTION OF THE STUDY: Resting ECG shows atrial fibrillation, rate 100 beats per minute. Resting blood pressure 146/72. Resting ECG shows diffuse ST-T abnormality. Isolated PVC. During the protocol, the heart rate increased to a maximum of 117 beats per minute. Blood pressure went up to 153/83. The patient reported some moderate chest pressure associated with nausea and vomiting that resolved with aminophylline 125 mg. ECG shows some worsening ST depression horizontal to downsloping in leads V5, V6. This also got better during the recovery phase. In summary, the electrocardiographic response to infusion of Lexiscan is deemed to be nonspecific. The patient reported moderate chest pressure. SUMMARY OF THE MYOCARDIAL PERFUSION PORTION OF THE STUDY: Poststress tomographic views of the left ventricle showed normal homogeneous distribution of radiotracer throughout the entire left ventricular myocardium. There is no evidence of any postexercise defect. The resting images showed normal perfusion. Polar plots revealed the same. No evidence of any inducible ischemia nor myocardial scar. Gated SPECT shows normal left ventricular systolic function. Ejection fraction is calculated at 88% wit normal ventricular volumes, no wall motion abnormality. Lung/heart ratio is normal. TID is normal. SUMMARY: This study shows: 1. Nonspecific electrocardiographic response to infusion of Lexiscan. 2. Essentially normal poststress myocardial perfusion scan. There is no scintigraphic evidence of pharmacologically-induced myocardial ischemia. 3. Normal left ventricular systolic function, ejection fraction 88%, normal ventricular volumes, no wall motion abnormality. Clinical correlation is recommended. cc: MD Hill Elmore MD
--- NOTE | 2019-07-05 19:22 | CARDIOLOGY PROGRESS NOTE ---
DATE: 07/05/2019 SUBJECTIVE: Patient continues without further chest discomfort. She continues to report significant lower back discomfort and discomfort extending into the upper and lower extremities. OBJECTIVE: Blood pressure 145/66, heart rate 78, oxygen saturation 100%. There is no significant jugular venous distention.Chest: Clear to auscultation. Cardiac: Regular rate and rhythm without appreciable murmur or gallop. Extremities: Without edema. LABORATORY AND DIAGNOSTIC DATA: Includes a white blood cell count of 12.54, hematocrit 34.4, hemoglobin 12.1, platelet count 306,000. Sodium 129, potassium 3.5, chloride 96, carbon dioxide 20, BUN 8, creatinine 0.7, glucose 125. Initial troponin T yesterday less than 0.01. Followup troponin late last night, less than 0.01. Lexiscan myocardial perfusion study is normal. Lumbar Spine CT scan indicates multilevel degenerative disk disease and facet arthropathy, mild spinal stenosis at L4-L5, and herniated nucleus pulposus at L5-S1. IMPRESSION: 1. Recent chest discomfort. There has been no objective evidence of myocardial ischemia. Lexiscan Myoview perfusion study normal. 2. Significant lower back discomfort with radiation to the upper and lower extremities. Suspect degenerative disk disease of lumbar spine as documented in lumbar spine CT. 3. Recent dark stools with history of previous gastrointestinal blood loss while on anticoagulation. Recent GI evaluation unrevealing. Hematocrit stable. 4. Atrial flutter. Patient is status post previous atrial flutter ablation in [place] several years ago. 5. Paroxysmal atrial fibrillation, which continues to recur despite two pulmonary vein isolation procedures and sotalol. 6. Recurrent gastrointestinal blood loss while on anticoagulation. Patient is status post Watchman procedure 06/08/2019, by Dr. Lawrence, as she was not felt to be a suitable candidate for long-term anticoagulation. Recommendation was for her to be on anticoagulation 45 days after the Watchman procedure with plans to pursue transesophageal echocardiography near the conclusions of this with anticoagulation. Lovenox started last night. 7. Longstanding hypertension/hypertensive cardiovascular disease. 8. Hyperlipidemia. 9. Hypothyroidism. RECOMMENDATIONS: 1. Continue Lovenox 1 mg/kg subcutaneously q.12. 2. Ultimately, would switch back to Xarelto prior to discharge. 3. No further cardiovascular suggestions. I will see her further on an as-needed basis. cc: Hill Campbell MD
--- NOTE | 2019-07-05 19:31 | GASTROENTEROLOGY PROGRESS NOTE ---
DATE: 07/05/2019 SUBJECTIVE: Patient was lying in bed in no acute distress. Her daughter was at the bedside. Her main complaint is back pain. There has been no visible evidence of active bleeding. She had an EGD that showed gastritis. OBJECTIVE: Vital Signs: Temperature 98.4 degrees, pulse 92, respirations 17, blood pressure 106/65. General: The patient is awake and alert, in no acute distress. LABORATORY: Hematology: WBC 12.54, hemoglobin 12.1, hematocrit 34.4, MCV 82.5, platelets 306,000. Chemistry: Sodium 129, potassium 3.5, chloride 96, CO2 of 20, BUN 8, creatinine 0.7, glucose 125. ASSESSMENT AND PLAN: 1. Recent gastrointestinal bleed. Seems to have resolved. EGD showed gastritis with no evidence of active bleeding. Continue proton pump inhibitor. 2. History of recent Watchman procedure. Followed by Cardiology. I believe she has been restarted on anticoagulation, Lovenox for now. We will follow recommendations of touch up worker on when to transition her back to her Xarelto. 3. Other medical problems including pneumonia, spinal stenosis, back pain, hypertension, continue recommendations per Medical team. Will continue to follow and further plans will be made according to her progress. I have discussed this case with Dr. Do. Dictated by KENNETH Jack for Aden Do MD cc: KENNETH Lopez MD
[2019-07-05] MEDS: SOLU-MEDROL IV SCH (21:25)
[2019-07-05] MEDS: AMBIEN PO SCH (21:26)
[2019-07-06] MEDS: NORCO-10 PO PRN ×3 (00:47→21:02)
[2019-07-06] MEDS: SOLU-MEDROL IV SCH ×3 (03:40→21:01)
[2019-07-06] MEDS: DILAUDID IV PRN ×2 (03:40→09:47)
[2019-07-06] MEDS: SYNTHROID PO SCH (06:20)
[2019-07-06] MEDS: PRILOSEC PO SCH (06:20)
[2019-07-06 06:31] LABS: BASO# 0.01 X1000 (0.0-0.2); BASO% 0.1 % (0.0-0.8); HEMATOCRIT 35.8 % (37.0-47.0); HEMOGLOBIN 12.5 g/dL (12.0-16.0); IMM GRAN# 0.02 X1000 (0.0-0.04); IMM GRAN% 0.3 % (0.0-0.5); LYMPH# 0.92 X1000 (1.2-3.4); LYMPH% 12.9 % (20.5-51.1); MCH 28.9 PG (27-31); MCHC 34.9 g/dL (33-37); MCV 82.7 FL (81-99); MONO% 1.4 % (1.7-9.3); MPV 11.4 FL (7.4-10.4); NEUT# 6.07 X1000 (1.4-6.5); NEUT% 85.3 % (42.2-75.2); PLT 307 X1000 (130-400); RBC 4.33 XMIL (4.2-5.4); RDW 13.1 % (11.5-14.5); WBC 7.12 X1000 (4.8-10.8)
[2019-07-06 06:45] LABS: AGAP 11; BUN 12 mg/dL (8-22); CALCIUM 9.4 mg/dL (8.8-10.2); CHLORIDE 99 mmol/L (98-107); COSMO 273; CREATININE 0.7 mg/dL (0.5-0.9); ESTIMATED GFR > 60; GLUCOSE 160 mg/dL (70-104); POTASSIUM 3.2 mmol/L (3.5-5.1); SODIUM 135 mmol/L (136-145); TCO2 25 mmol/L (25-35)
[2019-07-06 07:21] LABS: LYMPHS 8 % (21-51); SEGS 92 % (42-75)
[2019-07-06] MEDS: NORVASC PO SCH ×2 (09:49→21:02)
[2019-07-06] MEDS: LOVENOX SUBQ SCH ×2 (09:49→21:03)
[2019-07-06] MEDS: COZAAR PO SCH ×2 (09:49→21:02)
[2019-07-06] MEDS: LASIX PO SCH (09:49)
[2019-07-06] MEDS: BETAPACE PO SCH ×2 (09:49→21:01)
[2019-07-06] MEDS ORDERED: KLOR-CON PO ONE ×2 (10:34→11:30)
[2019-07-06] MEDS ORDERED: BENADRYL PO PRN (10:53)
--- NOTE | 2019-07-06 11:15 | PROGRESS NOTE ---
DATE: 07/06/2019 SUBJECTIVE: The patient reports back pain is better controlled. Denies any fever, chills, or any signs of any signs of overt bleeding. OBJECTIVE: Vitals: Temperature 97.6 degrees, heart rate 75, respiratory rate 18, blood pressure 166/73, and O2 saturation 97% on 2 L nasal cannula. General: This is a chronically ill-appearing 73-year-old female lying in bed in no acute distress. HEENT: Head is normocephalic and atraumatic. Neck: No JVD noted. No carotid bruits. No lymphadenopathy. No thyromegaly. Cardiovascular: S1, S2 heard. No murmurs, gallops, or rubs. Regular rate and rhythm. Respiratory: Clear bilaterally to auscultation. No work of breathing. Not using accessory muscles. Abdomen: Soft, nontender to palpation. Bowel sounds present. No organomegaly. Extremities: No clubbing, cyanosis, or edema. Peripheral pulses present in both legs. Neurological: Patient is alert and oriented x3. Moves all 4 extremities. LABORATORY DATA: White cell count 7.12, hemoglobin 12.5, hematocrit 35.8, and platelets 307,000. Normal BMP except potassium 3.2. ASSESSMENT AND PLAN: 1. Gastrointestinal bleeding. That condition is resolved. Patient is on Lovenox as per Dr. Campbell's recommendation from Cardiology. We will continue with the same management. 2. Left lower lobe pneumonia. Patient is on ceftriaxone. Clinically, she is doing fine. Upon discharge, she will complete a total of 14 days of antibiotics. 3. Spinal stenosis at the level L4-L5. We will continue with [place] and Dilaudid as needed. Physical Therapy is also consulted. We will follow recommendations. 4. Status post Watchman procedure. The patient has been restarted on anticoagulation in this case Lovenox 1 mg/kg every 12 hours. At discharge, we can switch to Xarelto. 5. Uncontrolled hypertension. Patient is on amlodipine and lisinopril has been stopped, and changed to losartan. Blood pressure 166 so we are going to increase the doses of losartan from 25 daily to 25 p.o. b.i.d. 6. Chest pain. We have consulted Cardiology. They have ordered a Lexiscan stress test which is negative. At this point, patient is feeling fine. No chest pain noted. Cardiology signed off. We will continue to monitor. 7. History of mitral valve prolapse. Aware. DISPOSITION: At this point, patient is stable. I am going to transfer her to a regular floor. The patient is has become very weak while she is in the hospital. I have recommended a rehab facility and the patient agreed. cc: Manpreet Mcelroy MD
[2019-07-06] MEDS: ROCEPHIN 1 GM in NS 50 ML IV SCH (15:14)
[2019-07-06] MEDS: AMBIEN PO SCH (21:01)
[2019-07-06] MEDS: COLACE PO SCH (21:02)
[2019-07-06] MEDS: MIRALAX PO SCH (21:03)
[2019-07-07] MEDS: SOLU-MEDROL IV SCH ×3 (05:55→20:57)
[2019-07-07] MEDS: PRILOSEC PO SCH (06:04)
[2019-07-07] MEDS: SYNTHROID PO SCH (06:04)
[2019-07-07 08:23] LABS: BASO# 0.01 X1000 (0.0-0.2); BASO% 0.1 % (0.0-0.8); EOS# 0.03 X1000 (0.0-0.7); EOS% 0.2 % (0.0-10.0); HEMATOCRIT 32.5 % (37.0-47.0); HEMOGLOBIN 11.3 g/dL (12.0-16.0); IMM GRAN# 0.02 X1000 (0.0-0.04); IMM GRAN% 0.1 % (0.0-0.5); LYMPH# 1.43 X1000 (1.2-3.4); LYMPH% 9.8 % (20.5-51.1); MCH 28.8 PG (27-31); MCHC 34.8 g/dL (33-37); MCV 82.9 FL (81-99); MONO# 0.92 X1000 (0.11-0.59); MONO% 6.3 % (1.7-9.3); MPV 11.3 FL (7.4-10.4); NEUT# 12.25 X1000 (1.4-6.5); NEUT% 83.5 % (42.2-75.2); PLT 307 X1000 (130-400); RBC 3.92 XMIL (4.2-5.4); RDW 13.2 % (11.5-14.5); WBC 14.66 X1000 (4.8-10.8)
[2019-07-07 08:53] LABS: AGAP 11; BUN 16 mg/dL (8-22); CALCIUM 9.3 mg/dL (8.8-10.2); CHLORIDE 99 mmol/L (98-107); COSMO 273; CREATININE 0.7 mg/dL (0.5-0.9); ESTIMATED GFR > 60; GLUCOSE 138 mg/dL (70-104); POTASSIUM 4.2 mmol/L (3.5-5.1); SODIUM 135 mmol/L (136-145); TCO2 25 mmol/L (25-35)
[2019-07-07] MEDS: MIRALAX PO SCH ×2 (09:30→20:56)
[2019-07-07] MEDS: COZAAR PO SCH ×2 (09:39→20:57)
[2019-07-07] MEDS: BETAPACE PO SCH ×2 (09:39→20:57)
[2019-07-07] MEDS: LASIX PO SCH (09:39)
[2019-07-07] MEDS: NORVASC PO SCH ×2 (09:39→20:57)
[2019-07-07] MEDS: COLACE PO SCH ×2 (09:39→20:57)
[2019-07-07] MEDS: LOVENOX SUBQ SCH ×2 (09:40→20:56)
[2019-07-07] MEDS: NORCO-10 PO PRN ×2 (09:40→21:04)
--- NOTE | 2019-07-07 14:55 | PROGRESS NOTE ---
DATE: 07/07/2019 SUBJECTIVE: The patient reports back pain is better. She is sitting in the chair today and is feeling okay. OBJECTIVE: Vital Signs: Temperature 99.3 degrees, heart rate 80, respiratory rate 18, blood pressure 142/53, O2 saturation 100% on room air. General Examination: This is a chronically ill- appearing, 73-year-old female lying in bed, in no acute distress. Cardiovascular: S1, S2 heard. No murmurs, gallops, or rubs. Regular rate and rhythm. Respiratory: Clear bilaterally to auscultation. No work of breathing or using accessory muscles. Abdomen: Soft, nontender to palpation. Bowel sounds present. No organomegaly. Extremities: No clubbing, cyanosis, or edema. Peripheral pulses present in both legs. Neurological: Patient is alert and oriented x3. Moves 4 extremities. LABORATORY DATA: Reviewed. ASSESSMENT AND PLAN: 1. GI bleeding. Condition is resolved. No more signs of GI bleeding. The patient has been started on Lovenox 1 mg/kg every [address] Campbell from Cardiology. We will continue with same management. 2. Left lower lobe pneumonia. Patient is on ceftriaxone and so far she has received a week of antibiotics. We will continue with the same medication and she will complete 14 days of antibiotics upon discharge. 3. Spinal stenosis at the level of L4 and L5. We will continue with [place] and Dilaudid as needed. Physical therapy is following this patient. We will follow recommendations. 4. Status post Watchman procedure. The patient has been restarted on anticoagulation, in this case Lovenox but at discharge we will switch to Xarelto. 5. Hypertension. The patient is on amlodipine and losartan. So far blood pressure is much better controlled. We will continue to monitor. 6. Chest pain. We have done troponin. 7. Content of the laboratory returned normal, so cardiology who had been following this patient initially, has signed off. 8. History of mitral valve prolapse. Aware. 9. Disposition. At this point, patient is stable. The patient has agreed to go to rehab facility. As soon as we get a bed, we will let her go. cc: Manpreet Mcelroy MD
[2019-07-07] MEDS: ROCEPHIN 1 GM in NS 50 ML IV SCH (16:17)
--- NOTE | 2019-07-07 20:26 | GASTROENTEROLOGY PROGRESS NOTE ---
DATE: 07/07/2019 SUBJECTIVE: Patient was sitting in a chair in no acute distress. She states she is feeling better. There has been no evidence of active GI bleeding. She had an EGD on 07/03/2019. Findings showed normal esophagus, mild gastritis, and normal duodenum. OBJECTIVE: Vital Signs: Temperature 99.3 degrees, pulse 80, respirations 18, blood pressure 142/53. General: Patient is awake, alert, in no acute distress. LABORATORY: Hematology: WBC 14.66, hemoglobin 11.3, hematocrit 32.5, MCV 82.9, platelet 307,000. Chemistry: Sodium 135, potassium 4.2, chloride 99, CO2 of 25, BUN 16, creatinine 0.7, glucose 138. ASSESSMENT AND PLAN: 1. Recent gastrointestinal bleeding has resolved. Hemoglobin and hematocrit slightly lower today, but stable. 2. Recent chest pain with cardiac evaluation done. Following with Cardiology. 3. Pneumonia. Continuing on antibiotics. 4. Back pain. Findings showed spinal stenosis. Her hemoglobin and hematocrit have been stable. No further evidence of active bleeding. Recommend she follow up with us as an outpatient. GI will currently sign off. Please reconsult if needed. I have discussed this case with Dr. Do. Dictated by KENNETH Jack for Aden Do MD cc: KENNETH Lopez MD
[2019-07-07] MEDS: AMBIEN PO SCH (20:57)
[2019-07-08] MEDS: NORCO-10 PO PRN ×3 (02:55→20:36)
[2019-07-08] MEDS: BENADRYL PO PRN ×2 (03:05→23:03)
[2019-07-08] MEDS: SOLU-MEDROL IV SCH ×3 (03:12→20:33)
[2019-07-08] MEDS: ZANAFLEX PO PRN ×3 (06:06→23:03)
[2019-07-08] MEDS: PRILOSEC PO SCH (06:06)
[2019-07-08] MEDS: SYNTHROID PO SCH (06:06)
[2019-07-08 08:02] LABS: AGAP 12; BUN 18 mg/dL (8-22); CALCIUM 8.9 mg/dL (8.8-10.2); CHLORIDE 99 mmol/L (98-107); COSMO 278; CREATININE 0.7 mg/dL (0.5-0.9); ESTIMATED GFR > 60; GLUCOSE 136 mg/dL (70-104); POTASSIUM 4.4 mmol/L (3.5-5.1); SODIUM 137 mmol/L (136-145); TCO2 26 mmol/L (25-35)
[2019-07-08 08:03] LABS: EOS# 0.05 X1000 (0.0-0.7); EOS% 0.4 % (0.0-10.0); HEMATOCRIT 33.8 % (37.0-47.0); HEMOGLOBIN 11.7 g/dL (12.0-16.0); IMM GRAN# 0.06 X1000 (0.0-0.04); IMM GRAN% 0.5 % (0.0-0.5); LYMPH# 1.09 X1000 (1.2-3.4); LYMPH% 8.3 % (20.5-51.1); MCHC 34.6 g/dL (33-37); MCV 83.9 FL (81-99); MONO# 0.62 X1000 (0.11-0.59); MONO% 4.7 % (1.7-9.3); NEUT# 11.26 X1000 (1.4-6.5); NEUT% 86.1 % (42.2-75.2); PLT 319 X1000 (130-400); RBC 4.03 XMIL (4.2-5.4); RDW 13.6 % (11.5-14.5); WBC 13.08 X1000 (4.8-10.8)
[2019-07-08 08:32] LABS: BANDS 1 % (0-1); LYMPHS 12 % (21-51); MONO 5 % (1-9); SEGS 82 % (42-75)
[2019-07-08] MEDS: NORVASC PO SCH ×2 (08:59→20:36)
[2019-07-08] MEDS: COLACE PO SCH ×2 (08:59→20:36)
[2019-07-08] MEDS: BETAPACE PO SCH ×2 (08:59→20:36)
[2019-07-08] MEDS: MIRALAX PO SCH ×2 (08:59→20:37)
[2019-07-08] MEDS: COZAAR PO SCH ×2 (09:00→20:36)
[2019-07-08] MEDS: LOVENOX SUBQ SCH ×2 (09:00→20:37)
[2019-07-08] MEDS: LASIX PO SCH (09:00)
--- NOTE | 2019-07-08 13:12 | PROGRESS NOTE ---
DATE: 07/08/2019 SUBJECTIVE: Patient reports feeling fine. Denies any fever or chills. OBJECTIVE: Vital Signs: Temperature 98.2 degrees, heart rate 73, respiratory rate 18, blood pressure 152/72, O2 saturation 100% on room air. General: This is a chronically ill-appearing 73- year-old female lying in bed, in no acute distress. Cardiovascular: S1, S2 heard. No murmurs, gallops, or rubs. Regular rate and rhythm. Respiratory: Clear bilaterally to auscultation. No work of breathing or using accessory muscles. Abdomen: Soft, nontender to palpation. Bowel sounds present. No organomegaly. Extremities: No clubbing, cyanosis, or edema. Peripheral pulses present in both legs. Neurological: The patient is alert oriented x3. Moves 4 extremities. LABORATORY DATA: Reviewed. ASSESSMENT AND PLAN: 1. Gastrointestinal bleeding. Condition resolved. 2. Left lower lobe pneumonia. Patient is on ceftriaxone. I think we will continue with the same management. 3. Spinal stenosis at the level L4-L5. Patient reports that yesterday she had a bad night. Currently she is on [place] 5 mg q.4 hours. We will continue with the same management. 4. Status post Watchman procedure. We will continue with Xarelto. 5. Hypertension. Blood pressure is under control. We will continue with amlodipine and losartan. 6. Chest pain. We have checked troponins and stress test, and everything is okay. 7. History of mitral valve prolapse. Aware. 8. Disposition. At this point, we are waiting for a rehab facility. cc: Manpreet Mcelroy MD
[2019-07-08] MEDS: ROCEPHIN 1 GM in NS 50 ML IV SCH (15:57)
[2019-07-08] MEDS: AMBIEN PO SCH (20:36)
[2019-07-09] MEDS: NORCO-10 PO PRN ×2 (00:40→09:43)
[2019-07-09] MEDS: ZOFRAN IV PRN ×4 (01:33→19:12)
[2019-07-09] MEDS: DILAUDID IV PRN ×5 (01:41→22:31)
[2019-07-09] MEDS: SOLU-MEDROL IV SCH ×3 (05:07→21:10)
[2019-07-09] MEDS: SYNTHROID PO SCH (06:02)
[2019-07-09] MEDS: PRILOSEC PO SCH (06:02)
[2019-07-09] MEDS: LOVENOX SUBQ SCH ×2 (09:42→21:10)
[2019-07-09] MEDS: COLACE PO SCH ×2 (09:43→21:10)
[2019-07-09] MEDS: BETAPACE PO SCH ×2 (09:43→21:09)
[2019-07-09] MEDS: ZANAFLEX PO PRN ×2 (09:43→19:12)
[2019-07-09] MEDS: NORVASC PO SCH ×2 (09:44→21:10)
[2019-07-09] MEDS: LASIX PO SCH (09:44)
[2019-07-09] MEDS: BENADRYL PO PRN ×3 (09:44→22:31)
[2019-07-09] MEDS: COZAAR PO SCH ×2 (09:44→21:10)
[2019-07-09] MEDS: MIRALAX PO SCH ×2 (09:44→21:10)
--- NOTE | 2019-07-09 13:53 | PROGRESS NOTE ---
DATE: 07/09/2019 SUBJECTIVE: Patient reports feeling fine. Denies any fever or chills. She reports excruciating pain in the lumbar area that was not relieved with [place]. OBJECTIVE: Vital Signs: Temperature 98.6 degrees, heart rate 81, respiratory rate 19, blood pressure 170/75, O2 saturation 100% on room air. General Examination: This is a chronically ill- appearing, 73-year-old, female lying in bed, in no acute distress. Cardiovascular Examination: S1 and S2 heard. No murmurs, gallops, or rubs. Regular rate and rhythm. Respiratory Examination: Clear bilaterally to auscultation. No work of breathing or using accessory muscles. Abdomen: Soft, nontender to palpation. Bowel sounds present. No organomegaly. Extremities: No clubbing, cyanosis, or edema. Peripheral pulses present in both legs. Neurological Examination: The patient is alert and oriented x3. Moves 4 extremities. Laboratory Data: Reviewed. ASSESSMENT AND PLAN: 1. Gastrointestinal bleeding, resolved. 2. Left lower lobe pneumonia. We will continue with ceftriaxone. We will complete 2 weeks of antibiotics total. She has been here in the hospital, so far, 9 days. 3. Spinal stenosis at the level of L4-L5. Because of her persistent pain, we are going to change [place] for Percocet 5 mg by mouth every 4 hours as needed. We will continue for breakthrough pain with Dilaudid. We will if see that helps. 4. Status post Watchman procedure. We will continue with Xarelto. 5. Hypertension. Blood pressure is under control. We will continue with the same management. 6. Chest pain, resolved. 7. History of mitral valve prolapse. Aware. We will continue to monitor. 8. Disposition. At this point, we are waiting for a rehab bed. cc: Manpreet Mcelroy MD
[2019-07-09] MEDS: PERCOCET-5 PO PRN ×2 (16:59→21:09)
[2019-07-09] MEDS: ROCEPHIN 1 GM in NS 50 ML IV SCH (17:00)
[2019-07-09] MEDS: AMBIEN PO SCH (21:09)
[2019-07-10] MEDS: DILAUDID IV PRN ×5 (01:17→21:44)
[2019-07-10] MEDS: ZANAFLEX PO PRN (04:21)
[2019-07-10] MEDS: SOLU-MEDROL IV SCH ×3 (04:23→21:42)
[2019-07-10] MEDS: PERCOCET-5 PO PRN (06:13)
[2019-07-10] MEDS: PRILOSEC PO SCH (06:13)
[2019-07-10] MEDS: SYNTHROID PO SCH (06:13)
[2019-07-10] MEDS: BETAPACE PO SCH ×2 (10:28→21:42)
[2019-07-10] MEDS: COLACE PO SCH ×2 (10:29→21:42)
[2019-07-10] MEDS: COZAAR PO SCH ×2 (10:29→21:42)
[2019-07-10] MEDS: NORVASC PO SCH ×2 (10:29→21:42)
[2019-07-10] MEDS: LASIX PO SCH (10:29)
[2019-07-10] MEDS: MIRALAX PO SCH (10:30)
[2019-07-10] MEDS: LOVENOX SUBQ SCH ×2 (10:30→21:42)
--- NOTE | 2019-07-10 12:21 | DISCHARGE SUMMARY ---
ADMISSION DATE: 06/30/2019 DISCHARGE DATE: 07/10/2019 CONSULTATIONS: 1. Dr. Tej Figueroa of Gastroenterology. 2. Dr. Hill Campbell with Cardiology. PERTINENT PROCEDURES: 1. Abdomen and pelvis CT, nonobstructing left renal stone, severe diverticulosis coli. 2. Head CT no acute disease or change from prior. 3. Cervical spine CT, advanced cervical and upper thoracic spondylosis. 4. Thoracic spine CT advanced thoracic spondylosis. 5. EGD performed by Dr. Do. 6. Lumbar spine CT multilevel degenerative disk disease and facet arthropathy. Mild spinal stenosis of L4 through 5, apparent herniated nucleus pulposus at L5 through S1. DISCHARGE DIAGNOSES: 1. GI bleed, resolved. 2. Left lower lobe pneumonia. The patient will complete 2 weeks of antibiotics, and had been on antibiotics for 10 days. 3. Spinal stenosis at the level of L4 through L5. The patient's pain medication was changed from Nash to Percocet. 4. Status post Watchman procedure. Continue Xarelto. 5. Hypertension. Continue home medications. 6. Chest pain, resolved. 7. History of mitral valve prolapse. Aware. HOSPITAL COURSE: Briefly, Ms. Andres is a 72-year-old female with history of atrial fibrillation on chronic anticoagulation, hypothyroidism, hypertension, and with prior GI bleed, presented to the ED complaining of mid back pain that radiated up through the center of her back into bilateral arms as well as chest pressure, shortness of breath with numbness and tingling to the mid part of her back. Symptoms resolved after taking 2 Aleve. She then developed abdominal cramping, went to the bathroom, had a large BM that was black with some blood mixed in. Shortly after this, she started having the same recurring pain which brought her to the ED where she was found to have elevated blood pressures. Again, she did have previous GI bleed on Eliquis prompting a cardiac ablation in the Watchman procedure [address] Medina in [place]. She was in the process of weaning Xarelto and was instructed to stop after 45 days, then take Plavix for 45 days, and then stop all anticoagulation. She was admitted for GI bleed, and underwent several CT's of her cervical and thoracic and lumbar spine, which all shows degenerative changes as well as spondylosis. She did undergo an EGD with Dr. Do. He found gastritis, and was okay to resume her pre procedure medications and follow up with GI in 2 months. She did not require any blood transfusions. She was also treated for a pneumonia. She had a normal perfusion scan evaluated by Cardiology. She has been working with physical therapy and will be discharged to [facility] today. VITAL SIGNS: At time of discharge, temperature is 98.7 degrees, heart rate 69, respirations 16, blood pressure 164/64, and O2 is 100% on room air. DISCHARGE DIET: GI soft. DISCHARGE MEDICATIONS: 1. Crestor 10 mg p.o. daily. 2. Lasix 20 mg p.o. daily. 3. Sotalol 120 mg tablet half a tab p.o. b.i.d. 4. Synthroid 100 mcg p.o. daily. 5. Xarelto 20 mg p.o. daily. 6. Ambien 5 mg p.o. at bedtime. 7. Cefdinir 300 mg p.o. b.i.d. 8. Cozaar 25 mg p.o. b.i.d. 9. Endocet 7.5 325 1 to 2 each p.o. q.4 hours. 10. Medrol Dosepak 4 mg p.o. as directed. 11. Norvasc 5 mg p.o. b.i.d. 12. Zanaflex 4 mg p.o. q.8 hours p.r.n. FOLLOWUP: Ms. Andres is being discharged to [facility]. She will continue her home antibiotics as instructed. She is to take all medications as prescribed. She can return to the ED or call 911 for any worsening of symptoms. Dictated by KENNETH Ocampo for Manpreet Mcelroy MD Addendum: Patient was about to be discharged to [facility]. When I checked on her I was not informed she had apparently a fall. She is having severe back pain so will order MRI of lumbar and thoracic spine and will consult Neurology for spinal stenosis. Will monitor patient closely. cc: MD Aden Gilmore MD Kirk L. Jackson, MD MTDD
--- NOTE | 2019-07-10 15:52 | Diag Imaging Result Doc PS360 ---
EXAM: MRI LUMBAR SPINE W/WO CONTRAST 07/10/2019 HISTORY: Spinal Stenosis, Acute Compression Fracture TECHNIQUE: T1-T2 and STIR sagittal, post gadolinium-enhanced T1 fat sat sagittal T1 and T2 axial with post gadolinium T1 axial COMMENT: There is no evidence of bone marrow edema. No intrathecal masses or signal abnormalities are present. There is no evidence of abnormal gadolinium enhancement. At the L1-2 level there is no evidence of spinal or foraminal stenosis. At the L2-3 level there is no spinal or foraminal stenosis. At the L3-4 level there is hypertrophic facet disease worse on the left than the right. The foramina appear to be patent. There is a mild degree of spinal stenosis. At the L4-5 level there is ligamentum flavum hypertrophy and facet arthropathy bilaterally. The foramina appear to be patent. There is a mild degree of spinal stenosis. At the L5-S1 level there is hypertrophic facet disease bilaterally without evidence of significant spinal or foraminal stenosis. IMPRESSION: No evidence of acute compression fracture. Mild spinal stenosis at L3-4 and L4-5. Facet disease as described. Electronically signed by Ld Edward 07/10/2019 3:50 PM
--- NOTE | 2019-07-10 15:55 | Diag Imaging Result Doc PS360 ---
EXAM: MRI THORACIC SPINE W/WO CON 07/10/2019 HISTORY: Compression Fracture TECHNIQUE: T1-T2 and STIR sagittal with post gadolinium-enhanced T1 sagittal fat sat, T1 and T2 axial with post gadolinium axial T1. COMMENT: There is no evidence of bone marrow edema. There is accentuated kyphosis of the thoracic spine. No intrathecal masses or signal abnormalities are present. There is an apparent hemangioma at T1. There is multilevel disc desiccation. Some anterior osteophyte formation is present particularly in the mid thoracic spine. There is no evidence of abnormal gadolinium enhancement. IMPRESSION: No evidence of acute bony abnormality. No evidence of spinal stenosis. Electronically signed by Ld Edward 07/10/2019 3:53 PM
[2019-07-10] MEDS: ROCEPHIN 1 GM in NS 50 ML IV SCH (16:47)
[2019-07-10] MEDS: AMBIEN PO SCH (21:44)
[2019-07-10] MEDS: ZOFRAN IV PRN (21:47)
[2019-07-11] MEDS: PERCOCET-10 PO PRN ×4 (00:48→23:11)
[2019-07-11] MEDS: MIRALAX PO SCH ×3 (00:50→21:41)
[2019-07-11] MEDS: ZANAFLEX PO PRN ×3 (01:31→18:29)
[2019-07-11] MEDS: DILAUDID IV PRN ×2 (01:31→05:42)
[2019-07-11] MEDS: SOLU-MEDROL IV SCH ×3 (05:07→21:41)
[2019-07-11] MEDS: SYNTHROID PO SCH (06:06)
[2019-07-11] MEDS: PRILOSEC PO SCH (06:06)
[2019-07-11] MEDS: BETAPACE PO SCH ×2 (08:41→21:40)
[2019-07-11] MEDS: NORVASC PO SCH ×2 (08:42→21:40)
[2019-07-11] MEDS: LASIX PO SCH (08:42)
[2019-07-11] MEDS: COLACE PO SCH ×2 (08:42→21:40)
[2019-07-11] MEDS: LOVENOX SUBQ SCH ×2 (08:43→21:40)
[2019-07-11] MEDS: COZAAR PO SCH ×2 (08:47→21:40)
[2019-07-11] MEDS: ROCEPHIN 1 GM in NS 50 ML IV SCH (15:35)
--- NOTE | 2019-07-11 17:35 | PROGRESS NOTE ---
DATE: 07/11/2019 SUBJECTIVE: Patient has no major complaints. OBJECTIVE: Blood pressure is 130/75, heart rate 73, respiratory rate of 14, temperature 98 degrees.Cardiovascular: Regular rate and rhythm. Pulmonary: Bilateral breath sounds clear to auscultation. Gastrointestinal: Soft, nontender, nondistended. Bowel sounds are positive. LABORATORY DATA: There is no new data today. PROBLEM LIST: 1. Gastrointestinal bleed, which has resolved. 2. Left lower lobe pneumonia. She is on Rocephin. This will be day 08/07. 3. Spinal stenosis is stable currently. We will continue p.r.n. Percocet and follow. 4. Status post Watchman procedure. She is on Xarelto I guess for a certain amount of time until finished. 5. Atrial fibrillation/flutter. She is stable on sotalol and again anticoagulated I guess until the Watchman matures. DISPOSITION: Plan was for rehabilitation today, but I think she will go out tomorrow and get stabilized. We will continue to monitor closely. cc: Jean Dewey MD
[2019-07-11] MEDS: BENADRYL PO PRN (21:40)
[2019-07-11] MEDS: AMBIEN PO SCH (21:41)
--- NOTE | 2019-07-11 21:53 | CONSULTATION ---
DATE OF CONSULTATION: 07/11/2019 REASON FOR CONSULT: Spinal stenosis. HISTORY OF PRESENT ILLNESS: This is a 73-year-old, female, admitted 06/30. She reports to me that she came into the emergency department because of black tarry stool, but after arriving had pretty quick onset of mid back pain that radiated to bilateral arms. She had some numbness and tingling around the mouth/chin associated. She had similar symptoms briefly the day before, but they resolved with Advil. Very quickly those symptoms involved her bilateral lower extremities in their entirety, circumferentially. She states intense, painful, prickly sensation as if they were asleep. Symptoms wax and wane in intensity and she notes they have been worse with standing and walking as well as just sitting. She does not know if bending over or other maneuvers help. The symptoms are present at rest. She has only had symptom-free time after a dose of Dilaudid and she drifts to sleep. She has not had obvious visual change. No difficulty swallowing. No headache. No shortness of breath. There has not been syncope. She has not had bladder dysfunction. She has dealt with some constipation since admission, but that has now been relieved with medications. The patient has never had symptoms like this before. The pain is intense and is a 10 on a scale of 1 to 10. She feels her legs are weak and her knees have buckled. She had a fall yesterday trying to get off of the toilet. She becomes tearful frequently during our conversation. The pain in her midback has settled into her very low back. She has not felt that it has started distally and spread proximally or that has continued to spread proximally. Basically, it started in the back, arms and legs at the same time and has not necessarily progressed. No recent infectious illness whether URI or GI. PAST MEDICAL HISTORY: Paroxysmal atrial fibrillation and atrial flutter, hypertension, hyperlipidemia, recurrent GI bleed on anticoagulation status post recent Watchman procedure last month, cataract surgery, cholecystectomy, hysterectomy and hypothyroidism. FAMILY HISTORY: No coronary disease. SOCIAL HISTORY: She is a prior smoker. Occasional alcohol. No illicit. She lives alone and is able to perform all of her ADLs independently. ALLERGIES: No known drug allergies listed. MEDICATIONS: Reviewed in the chart. REVIEW OF SYSTEMS: Balance of 12 conducted and is otherwise negative except that detailed in the HPI. PHYSICAL EXAMINATION: Vital Signs: She is afebrile, blood pressure 130/75, pulse 70s, respirations 14, 99% on room air. General: Ms. Andres is supine in bed with head of bed elevated. She is awake alert oriented. Speech fluent. Language intact. No dysarthria. Appropriate and attentive. Follows simple and complex commands. Pupils equal, round, and reactive. Extraocular movements are intact. Visual lujan intact to direct confrontational testing. Face symmetric with equal activation. Facial sensation reported intact. Tongue is midline. Palate elevates symmetrically. She can hear. Shoulder shrug is full. Motor exam: Her tone is equal in the limbs. She has preserved power in the bilateral upper extremities with the following exceptions noted: Left deltoid 4/5, though she does report some pain with testing there. In the lower extremities, power is preserved with the following exceptions: Knee flexion and extension 4/5 bilaterally. A little bit worse on the left compared to the right. More distally, she has full power, including foot eversion/eversion. More proximally, she has good power as well. Sensory exam: There are a few inconsistencies but in general she reports diminished sensation to pinprick and temperature that is symmetric in the bilateral lower extremities throughout. She reports diminished sensation to pinprick in the bilateral upper extremities to distally to approximately the elbow bilaterally. She reports diminished sensation on the back and abdomen/chest area to the uppermost thoracic area. Vibratory sense is intact bilaterally. Joint position sense is difficult bilaterally. Reflexes are 1+ left biceps, absent right biceps, bilateral wrists, bilateral knees, bilateral ankle jerks. No clonus. Plantar response is silent. No incoordination on testing. DIAGNOSTICS: Cervical and thoracic spine CT showing advanced spondylosis without central canal stenosis. Lumbar spine CT showing multilevel degenerative disk disease and facet arthropathy. Mild spinal stenosis at L4-5. Apparent herniated nucleus pulposus at L5-S1. MRI of the thoracic spine with and without contrast: No acute abnormality. MRI of the lumbar spine, with and without contrast: No evidence of acute compression fracture. Mild spinal stenosis at L3-4, L4-5. Facet disease. LABS: Reviewed in the chart. Normal sodium BUN, creatinine, B12, folate, CRP. ASSESSMENT AND PLAN: A somewhat abrupt onset of painful paresthesias and numbness, mostly symmetric, involving bilateral forearms and bilateral lower extremities with associated midline back pain initially and weakness as detailed above. Symptoms have fluctuated in intensity since onset approximately 1 week ago. The etiology is uncertain. The mild lumbar spinal stenosis noted on the imaging would not account for her upper extremity and lower facial symptoms. I think she needs cervical MRI with and without contrast and I will order that. If that is unrevealing, the patient may very well need EMG nerve conduction study and further workup pending that. I would continue with physical therapy and occupational therapy at this time. Monitor clinically. Further recommendations to follow. Thank you for the consultation. cc: Ivy Torres MD MTDD
[2019-07-12] MEDS: DILAUDID IV PRN ×2 (01:07→09:37)
[2019-07-12] MEDS: ZOFRAN IV PRN ×2 (01:09→09:37)
[2019-07-12] MEDS: ZANAFLEX PO PRN (04:39)
[2019-07-12] MEDS: PERCOCET-10 PO PRN ×2 (04:39→16:22)
[2019-07-12] MEDS: SOLU-MEDROL IV SCH ×2 (04:57→12:05)
[2019-07-12] MEDS: PRILOSEC PO SCH (06:24)
[2019-07-12] MEDS: SYNTHROID PO SCH (06:24)
[2019-07-12 07:32] VITALS: BP 172/78
[2019-07-12] MEDS: LASIX PO SCH (09:31)
[2019-07-12] MEDS: BETAPACE PO SCH (09:31)
[2019-07-12] MEDS: NORVASC PO SCH (09:31)
[2019-07-12] MEDS: LOVENOX SUBQ SCH (09:31)
[2019-07-12] MEDS: COLACE PO SCH (09:31)
[2019-07-12] MEDS: COZAAR PO SCH (09:31)
[2019-07-12] MEDS: MIRALAX PO SCH (09:32)
[2019-07-12] MEDS: BENADRYL PO PRN (09:37)
[2019-07-12] MEDS ORDERED: NEURONTIN PO SCH (10:45)
[2019-07-12] MEDS ORDERED: MORPHINE IV ONE (10:45)
--- NOTE | 2019-07-12 10:48 | Diag Imaging Result Doc PS360 ---
EXAM: MRI CERVICAL SPINE W/O CON INDICATION: paresthesia BUE,lower face and BLE; sensory level TECHNIQUE: COMPARISON: CT C-spine dated 07/01/2019. No prior MRI C-spine is available for comparison. FINDINGS: A couple of small vertebral body hemangiomas are noted incidentally with the most prominent at T1. The osseous marrow signal is essentially unremarkable, otherwise. The cervical spinal cord signal, structures at the base the brain, and surrounding soft tissues are essentially unremarkable. Segmental analysis of the cervical spine is detailed below. C1-2: Sagittal images at this level show degenerative changes but no high-grade stenosis. C2-3: Unremarkable. C3-4: There is a small central disc protrusion and there is bilateral degenerative facet arthropathy. This causing mild effacement of ventral thecal site but no cord compression. There is at least moderate stenosis of the left neuroforamen. C4-5: Essentially unremarkable. C5-6: Very small uncovertebral osteophytes are probably causing minimal foraminal narrowing. The central canal is essentially patent. C6-7: There is a broad-based endplate osteophyte causing mild effacement of the ventral thecal site. There is no cord compression or significant central stenosis. The neuroforamina appear to be patent. C7-T1: Unremarkable. IMPRESSION: Multilevel degenerative changes of detailed level by level above that is probably most significant at C3-4. Electronically signed by Levi Lawson 07/12/2019 10:45 AM
--- NOTE | 2019-07-12 12:09 | DISCHARGE SUMMARY ---
ADMISSION DATE: 06/30/2019 DISCHARGE DATE: 07/12/2019 DISCHARGE DIAGNOSIS: The same as previously described pneumonia. 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 HOSPITAL COURSE: Her MRI of her spine and lumbar are really unremarkable. Mild stenosis L3, L4, L5. Recommended PT, pain control. She is on steroids. I have added Neurontin for neuropathy and then follow up with Neurosurgery for possible epidural and Neurology for outpatient nerve conduction studies. Discharge condition is stable. We will do an ultrasound on her groin; presumably if that is negative, we should be able to get her to rehab today. The only new medication she has is Prilosec which she had a GI bleed, and then Neurontin 300 b.i.d. DISCHARGE CONDITION: Stable. TIME SPENT: 32 minute discharge. cc: Jean Dewey MD
[2019-07-12] MEDS: ROCEPHIN 1 GM in NS 50 ML IV SCH (16:02)
--- NOTE | 2019-07-14 08:35 | VASCULAR LAB ---
DATE: 07/12/2019 PROCEDURE: Right groin ultrasound. INDICATION: The patient is post heart catheterization and has pain in the groin. FINDINGS: The right groin is imaged. The common femoral artery, common femoral vein, superficial femoral artery and veins are all identified, and all have flow. There is no evidence of pseudoaneurysm. There is no evidence of DVT. There is no evidence of fistula. cc: MD Jean Busch MD
== END 2019-07-12 18:34 | disposition home or self-care (01) | DRG 377 ==
LOC: ED 09:29 → SUATTDRO 20:24 → 1N 20:24 → 2N 07-04 15:47 → 3N 07-06 21:50
PROVIDERS: ATTEND Internal Medicine